=== PATIENT | female | born 1930 | race Caucasian/White ===

== ENCOUNTER 2017-07-28 13:48 | Observation (INO) | payer OTHER, MEDICARE ==
[~2017-07-28] VITALS: Ht 167.6 cm; Wt 79.4 kg
[~2017-07-28 13:48] MED LIST: ALENDRONATE SOD70 MG PO; ALLEGRA ALLERG180 MG PO; BACTRIM DS 8001 TAB PO; BACTRIM DS TAB1 EACH PO; BENADRYL ALLERG25 M1 PO; CARVEDILOL3.125 MG PO; CELEXA20 MG PO; CLOPIDOGREL75 MG PO; CYMBALTA 30 MG30 MG PO; FLUTICASON0.05 MG/Ac NASB; GABAPENTIN TAB600 MG PO; HYZAAR 25 MG-101 TAB PO; LEVOTHYROXINE0.05 MG PO; LIORESAL 10MG T10 MG PO; MASON NATURAL2000 IU PO; MELOXICAM15 MG PO; PERCOCET 325 MG1 TA2 PO; PHENAZOPYRIDIN100 M3 PO; PHENAZOPYRIDIN200 MG PO; VITAB121000 PO
--- NOTE | 2017-07-28 13:56 | ED AMS/SEIZURE/WEAK/DIZZY ---
History of Present Illness General Chief Complaint: Dizziness Stated Complaint: DIZZINESS Allergies Coded Allergies: ciprofloxacin (From CIPRO) (Mild, GI USPSET 07/02/15) Reconcile Medications Alendronate Sodium 70 MG TAB 1 TAB PO QW BONE (Reported) in the morning, at least 30 minutes before the first food, beverage, or medication of the day Carvedilol 3.125 MG TAB 1 TAB PO BID HEART (Reported) CHOLECALCIFEROL (VITAMIN D3) (Vitamin D) 2,000 IU SGL 1 CAP PO DAILY SUPPLEMENT (Reported) Citalopram Hydrobromide (Celexa) 20 MG TAB 1 TAB PO DAILY MENTAL HEALTH ( Reported) CLOPIDOGREL BISULFATE (Clopidogrel) 75 MG TAB 1 TAB PO DAILY BLOOD THINNER ( Reported) Cyanocobalamin (Vitamin B-12) 1,000 MCG TAB 1 TAB PO DAILY V (Reported) Duloxetine Hydrochloride (Cymbalta) 30 MG CAP 1 CAP PO DAILY MENTAL HEALTH ( Reported) Fluticasone Propionate 0.05 MG/Actuation SPR 2 SPRAY NASB DAILY ALLERGIES ( Reported) Gabapentin (Gabapentin Tab 600MG) 600 MG TAB 0.5 TAB PO AT BEDTIME UNKNOWN ( Reported) LOSARTAN/HYDROCHLOROTHIAZIDE (Hyzaar 100-25 Tablet) 1 TAB TAB 1 TAB PO DAILY HEART (Reported) OXYCODONE HCL/ACETAMINOPHEN (Percocet 5-325 MG Tablet) 325 MG/5 MG TAB 1 TAB PO Q6 PRN PAIN (Reported) PHENAZOPYRIDINE HCL (Phenazopyridine HCl) 200 MG TAB 1 TAB PO TID INFECTION ( Reported) after food Phenazopyridine HCl 100 MG TABLET 1 TAB PO TID AntiSpasmic Sulfamethoxazole/Trimethopri (Bactrim Ds 800 MG-160 MG) 1 TAB TAB 1 TAB PO BID INFECTION (Reported) Sulfamethoxazole/Trimethoprim (Bactrim Ds Tablet) 800 MG-160 MG TABLET 1 TAB PO BID UTI HPI: Patient is an 86-year-old female with a past medical history of hypertension, mood disorder, hypothyroidism, fibromyalgia, psoriasis, colon cancer status post resection approximately 6 years ago who resides at [facility] in which old records also indicate that approximately 6 months ago patient was seen and evaluated at [place] emergency room for concerns of dizziness versus room spinning sensation and vertigo where she received CAT scans carotid ultrasounds and patient was safely discharged with meclizine and an antibiotic due to urine infection Past History Medical History Cardiovascular: hypertension Hepatic: KIDNEY STONES Musculoskeletal: osteoporosis T12 FRACTURE Psychiatric: anxiety disorder major depression Endocrine: hyperthyroid History of MRSA: No History of VRE: No History of CDIFF: No Surgical History Surgical History: non-contributory Psychosocial History What is your primary language Stateless Progress Plan of Care: Orders Procedure Date/time Status URINALYSIS 07/28 1354 Active TROPONIN LEVEL 07/28 1354 Active PARTIAL THROMBOPLASTIN TIME 07/28 1354 Active PROTHROMBIN TIME 07/28 1354 Active COMPREHENSIVE METABOLIC PANEL 07/28 1354 Active CBC WITHOUT DIFFERENTIAL 07/[address] HEAD WO IV CONTRAST 07/28 1354 Active EKG 07/28 1351 Active Current Medications Sig/Cassie Start time Last Medication Dose Stop Time Status Admin Meclizine HCl 25 MG ONCE ONE 07/28 1400 UNVr (Antivert) 07/28 1401 Ondansetron HCl 4 MG ONCE ONE 07/28 1400 UNVr (Zofran) 07/28 1401 Departure Departure Condition: Stable Referrals: Rhonda Edmond MD (PCP/Family) Departure Forms: Customer Survey General Discharge Information
--- NOTE | 2017-07-28 13:59 | ED AMS/SEIZURE/WEAK/DIZZY ---
See Addendum History of Present Illness General Chief Complaint: Dizziness Stated Complaint: DIZZINESS Source: patient, old records, EMS Exam Limitations: no limitations Vital Signs & Intake/Output Vital Signs & Intake/Output Vital Signs Date Time Temp Pulse Resp B/P B/P Pulse O2 O2 Flow FiO2 Mean Ox Delivery Rate 07/28 1619 98.0 76 18 158/76 96 Room Air 07/28 1422 98 Room Air 07/28 1415 98.1 70 18 155/86 98 Room Air Allergies Coded Allergies: ciprofloxacin (From CIPRO) (Mild, GI USPSET 07/02/15) Reconcile Medications Acetaminophen 500 MG TABLET 2 TAB PO TID PAIN (Reported) Alendronate Sodium (Fosamax) 70 MG TABLET 1 TAB PO QMON OSTEOPOROSIS ( Reported) in the morning, at least 30 minutes before the first food, beverage, or medication of the day Betamethasone Dipropionate 0.05 % CREAM..G. 1 PALOMA TOP DAILY BLE (Reported) apply to affected area(s) Budesonide/Formoterol Fumarate (Symbicort 80-4.5 Mcg Inhaler) 80 MCG-4.5 MCG/ ACTUATION HFA.AER.AD 2 PUF INH BID RESP. (Reported) Cholecalciferol (Vitamin D3) (Vitamin D) 2,000 UNIT CAPSULE 1 CAP PO DAILY SUPPLEMENT (Reported) Citalopram Hydrobromide (Citalopram HBr) 40 MG TABLET 1 TAB PO DAILY MENTAL HEALTH (Reported) Cyanocobalamin (Vitamin B-12) 1,000 MCG TABLET 1 TAB PO DAILY SUPPLEMENT ( Reported) Diazepam 2 MG TABLET 1 TAB PO BID UNKNOWN (Reported) Duloxetine HCl 30 MG CAPSULE.DR 1 CAP PO DAILY UNKNOWN (Reported) Gabapentin 300 MG CAPSULE 1 CAP PO TID UNKNOWN (Reported) Hyoscyamine Sulfate 0.125 MG TABLET 1 TAB PO DAILY UKNOWN (Reported) Librax (Librax Capsule) 5 MG-2.5 MG CAPSULE 1 CAP PO TID PRN SPASMS (Reported ) Loratadine (Loradamed) 10 MG TABLET 1 TAB PO DAILY PRN ALLERGIES (Reported) Lorazepam 1 MG TABLET 1 TAB PO Q12H PRN ANXIETY (Reported) Losartan/Hydrochlorothiazide (Losartan-Hctz 100-25 MG Tab) 100 MG-25 MG TABLET 1 TAB PO DAILY BP (Reported) Mirabegron (Myrbetriq) 50 MG TAB.ER.24H 1 TAB PO DAILY BLADDER (Reported) Pantoprazole Sodium 40 MG TABLET.DR 1 TAB PO DAILY GI (Reported) Phenazopyridine HCl 100 MG TABLET 1 TAB PO TID PRN PAIN (Reported) Trimethoprim 100 MG TABLET 1 TAB PO DAILY ABX (Reported) Triage Nurses Notes Reviewed? yes Onset: Abrupt Duration: day(s): (1), changing over time, continues in ED, getting worse Timing: remote history Injury Environment: home Severity: moderate, severe Severity Numbers: 7 No Modifying Factors: none LMP (ages 10-50): unknown : No Patient currently breastfeeds: No HPI: 86-year-old female past medical history of hypertension, hyperthyroidism, fibromyalgia, anxiety brought in by a sam from assisted living for evaluation of dizziness, nausea and weakness. Patient reports that when she woke up today she felt very dizzy with any movement of her head or even opening her eyes. This does improve somewhat when she lays flat and keeps her eyes closed. She reports associated nausea. No recent head trauma or falls. No vomiting. No chest pain or shortness of breath. She has had similar symptoms in the past been diagnosed with vertigo. She also has a history of recurrent UTIs. Currently denies any urinary symptoms no fevers no abdominal pain. She does report some left-sided lower back pain. She is not taking any medicine for this. She states that she has been unable to walk due to extreme dizziness. (Roddy Chaney) Past History Medical History Any Pertinent Medical History? see below for history Cardiovascular: hypertension Hepatic: KIDNEY STONES Musculoskeletal: osteoporosis T12 FRACTURE Psychiatric: anxiety disorder major depression Endocrine: hyperthyroid History of MRSA: No History of VRE: No History of CDIFF: No Surgical History Surgical History: non-contributory Psychosocial History What is your primary language Ivorian Family History Hx Contributory? No (Roddy Chaney) Review of Systems Review of Systems Constitutional: Reports: weakness. EENTM: Reports: no symptoms. Respiratory: Reports: no symptoms. Cardiovascular: Reports: no symptoms. GI: Reports: see HPI, nausea. Genitourinary: Reports: no symptoms. Musculoskeletal: Reports: no symptoms. Skin: Reports: no symptoms. Neurological/Psychological: Reports: see HPI (DIZZY), weakness. Hematologic/Endocrine: Reports: no symptoms. Immunologic/Allergic: Reports: no symptoms. All Other Systems: Reviewed and Negative (Ruperto CHAVARRIA,Roddy) Physical Exam Physical Exam General Appearance: well developed/nourished, no apparent distress, alert, awake Head: atraumatic, normal appearance Eyes: Bilateral: normal appearance, PERRL, EOMI. Ears, Nose, Throat: normal pharynx, normal ENT inspection, hearing grossly normal Neck: normal inspection, supple, full range of motion, NO JVD OR CAROTID BRUITS Respiratory: normal breath sounds, chest non-tender, no respiratory distress, lungs clear Cardiovascular: regular rate/rhythm, normal peripheral pulses Peripheral Pulses: 2+ radial (R), 2+ radial (L) Gastrointestinal: soft, non-tender Back: normal inspection, normal range of motion, no vertebral tenderness Extremities: normal range of motion Neurologic/Psych: no motor/sensory deficits, awake, alert, oriented x 3, normal gait Skin: intact, normal color, warm/dry Lymphatic: no anterior cervical booker Core Measures ACS in differential dx? No CVA/TIA Diagnosis No Sepsis Present: No Sepsis Focused Exam Completed? No (Ruperto CHAVARRIA,Roddy) Progress Differential Diagnosis: arrythmia, anemia, benign positional vertigo, CVA/stroke , dehydration, electrolyte imbalance, intracranial Hem., intracranial mass/tumor , Meniere's disease, postural hypotension, presyncope, UTI/pyelo Plan of Care: Orders Procedure Date/time Status Heart Healthy Diet 07/29 B Active CBC WITHOUT DIFFERENTIAL 07/29 06 Active BASIC ELECTROLYTES PLUS BUN&CR 07/29 0600 Active Regular Diet 07/28 D Complete PT Evaluate & Treat 07/28 1748 Active Pathway - chart 07/28 1748 Active House Staff 07/28 1748 Active Patient Data 07/28 1748 Active Code Status 07/[address] in observation 07/28 1744 Active ED Holding Orders 07/28 1744 Active Vital Signs 07/28 1744 Active Code Status 07/28 1744 Complete Patient Data 07/[address] ABD & PELVIS W/O IV CONTRAS 07/28 1710 Active Add-on Test (ER Only) 07/28 1439 Active CULTURE,URINE 07/28 1409 Active MISTAKE 07/28 1406 Active Add-on Test (ER Only) 07/28 1404 Active Add-on Test (ER Only) 07/28 1402 Active URINALYSIS 07/28 1354 Complete TROPONIN LEVEL 07/28 1354 Complete PARTIAL THROMBOPLASTIN TIME 07/28 135 Complete PROTHROMBIN TIME 07/28 1354 Complete COMPREHENSIVE METABOLIC PANEL 07/28 135 Complete CBC WITHOUT DIFFERENTIAL 07/28 135 Complete EKG 07/28 1351 Active VTE Mechanical Prophylaxis 07/28 UNK Active Vital Signs 07/28 UNK Active Intake & Output 07/28 UNK Active Laboratory Tests 07/28/17 1409: Anion Gap 12, Estimated GFR > 60, BUN/Creatinine Ratio 16.3, Glucose 85, Calcium 9.7, Total Bilirubin 0.7, AST 17, ALT 17, Alkaline Phosphatase 41, Troponin I < 0.01, Total Protein 7.1, Albumin 4.2, Globulin 2.9, Albumin/Globulin Ratio 1.4, PT 11.6, INR 1.06, APTT 27, CBC w Diff NO MAN DIFF REQ, RBC 4.26, MCV 87.9, MCH 29.2, MCHC 33.3, RDW 14.2, MPV 8.0, Gran % 71.9, Lymphocytes % 18.0 L, Monocytes % 8.0, Eosinophils % 1.7, Basophils % 0.4, Absolute Granulocytes 5.3, Absolute Lymphocytes 1.3, Absolute Monocytes 0.6, Absolute Eosinophils 0.1, Absolute Basophils 0, Urinalysis LIGHT H, Urine Color YEL, Urine Clarity HAZY H, Urine pH 7.5, Ur Specific Edmond 1.015, Urine Protein NEG, Urine Ketones NEG , Urine Nitrite NEG, Urine Bilirubin NEG, Urine Urobilinogen 0.2, Ur Leukocyte Esterase SMALL H, Ur Microscopic SEDIMENT EXAMINED, Urine RBC 1-3, Urine WBC 15 -25 H, Ur Epithelial Cells FEW, Urine Bacteria MANY H, Urine Mucus FEW, Urine Hemoglobin NEG, Urine Glucose NEG Microbiology 07/28 1409 URINE ROUT: Urine Culture - RECD Patient seen and evaluated. She is reporting dizziness that is worse with movement and improves at rest. Associated nausea. Patient is neurologically intact her vital signs are stable. We'll check basic labs EKG CT scan of the brain and urinalysis. Patient medicated with Zofran and meclizine. CT OF the brain is within normal limits. All blood work is within normal limits. Urine is showing signs of infection culture sent. Patient was questioned about urinary signs and symptoms she does report frequency urgency and dysuria. Patient is still reports severe nausea even after Zofran and meclizine. Reglan ordered. Patient still does not feel like she can walk due to her symptoms. She may require admission. Patient is still reporting significant dizziness despite medications. 0.5MG of IV Ativan ordered. She was also given a dose of IV ceftriaxone for UTI. She was unable to ambulate in the emergency department despite multiple IV medications. She will require admission for intractable vertigo and UTI. She' ll require neurology, IV antibiotics, IV fluids, serial labs, echocardiogram, carotid ultrasound, MRI, physical therapy, case management. Case discussed with Dr. Vazquez he agrees. Diagnostic Imaging: Viewed by Me: Radiology Read, CT Scan. Discussed w/RAD: Radiology Read, CT Scan. Radiology Impression: PATIENT: VIJAY ROWE PRESENT AGE : 86 PATIENT ACCOUNT NO: [id number] : 30 LOCATION: [facility] ORDERING PHYSICIAN: Roddy CHAVARRIA SERVICE DATE: 07/28/17 EXAM TYPE: CAT - CT HEAD WO IV CONTRAST EXAMINATION: CT HEAD WITHOUT CONTRAST CLINICAL INFORMATION: Dizziness and headache. COMPARISON: CT brain 11/15/2016 TECHNIQUE: Contiguous axial imaging was performed from the skull base to vertex without intravenous administration of contrast. DLP: 776 mGy-cm FINDINGS: There is no evidence of acute intracranial hemorrhage or territorial infarction. No abnormal mass effect or midline shift is seen. Paige to white matter differentiation is well preserved. No extra-axial fluid collections are identified. The lateral ventricles are enlarged and so other cortical sulci suggestive mild central atrophy. There is diffuse periventricular hypodensity suggestive of chronic small vessel ischemic changes. The osseous structures and soft tissues are normal. The mastoid air cells and visualized portions of the paranasal sinuses are well aerated. IMPRESSION: No acute intracranial process seen. DICTATED BY: Keke PEREZ,Brent DATE/TIME DICTATED:07/28/171453 FPGA DESIGN ENGINEER:MODE DATE/TIME TRANSCRIBED:07/28/171453 CONFIDENTIAL, DO NOT COPY WITHOUT APPROPRIATE AUTHORIZATION. Initial ED EKG: normal sinus rhythm, PACs, PROBABLE POSTERIOR INFARCT (Roddy Chaney) Departure Departure Disposition: STILL A PATIENT Condition: Stable Clinical Impression Primary Impression: Vertigo Secondary Impressions: UTI (urinary tract infection) Qualifiers: Urinary tract infection type: acute cystitis Hematuria presence: without hematuria Qualified Code: N30.00 - Acute cystitis without hematuria Referrals: Mayito PEREZ,Rhonda (PCP/Family) Departure Forms: Customer Survey General Discharge Information (Roddy Chaney) Observation Note Spoke With: Deep PEREZ,Ilene Physician Advisor Notified: HOWARD VAZQUEZ DO Place Patient In: Non-ED OBS Care Area Rationale for Observation: My rational for observation is as follows [patient is unable to ambulate. She has intractable vertigo. She will need IV fluids and IV medications including benzodiazepines. She is at risk to go home and therefore needs PT evaluation]. (Howard Vazquez DO)
[2017-07-28 14:31] LABS: ABSOLUTE BASOPHIL COUNT 0 /CUMM (0.0-0.2); ABSOLUTE EOSINOPHIL COUNT 0.1 /CUMM (0.0-0.7); ABSOLUTE GRANULOCYTE CT 5.3 /CUMM (1.4-6.5); ABSOLUTE LYMPH COUNT 1.3 /CUMM (1.2-3.4); ABSOLUTE MONOCYTE COUNT 0.6 /CUMM (0.10-0.60); BASOPHIL % 0.4 % (0.0-2.0); EOSINOPHIL % 1.7 % (0-5); GRANULOCYTE % 71.9 % (42.2-75.2); HEMATOCRIT 37.4 % (37-47); MEAN CORPUSCULAR HGB 29.2 PG (27.0-31.0); MEAN CORPUSCULAR HGB CONC 33.3 G/DL (33.0-37.0); MEAN CORPUSCULAR VOLUME 87.9 FL (81.0-99.0); PLATELET COUNT 226 /CUMM (130-400); RBC DISTRIBUTION WIDTH 14.2 % (11.5-14.5); RED BLOOD CELL CT 4.26 /CUMM (4.20-5.40); WHITE BLOOD CELL COUNT 7.4 /CUMM (4.8-10.8)
[2017-07-28 14:34] LABS: PT 11.6 SEC (9.4-12.5); PTT 27 SEC (25-37)
--- NOTE | 2017-07-28 15:03 | CT SCAN REPORT ---
EXAMINATION: CT HEAD WITHOUT CONTRAST CLINICAL INFORMATION: Dizziness and headache. COMPARISON: CT brain 11/15/2016 TECHNIQUE: Contiguous axial imaging was performed from the skull base to vertex without intravenous administration of contrast. DLP: 776 mGy-cm FINDINGS: There is no evidence of acute intracranial hemorrhage or territorial infarction. No abnormal mass effect or midline shift is seen. Paige to white matter differentiation is well preserved. No extra-axial fluid collections are identified. The lateral ventricles are enlarged and so other cortical sulci suggestive mild central atrophy. There is diffuse periventricular hypodensity suggestive of chronic small vessel ischemic changes. The osseous structures and soft tissues are normal. The mastoid air cells and visualized portions of the paranasal sinuses are well aerated. IMPRESSION: No acute intracranial process seen.
[2017-07-28] MEDS ORDERED: ACETAMINOPHEN500 M4 PO (16:02)
[2017-07-28] MEDS ORDERED: FOSAMAX70 M1 PO (16:02)
[2017-07-28] MEDS ORDERED: BETAMETHASONE D15 G4 TOP (16:02)
[2017-07-28] MEDS ORDERED: LIBRAX CAPSULE1 EACH PO (16:03)
[2017-07-28] MEDS ORDERED: SYMBICORT 80-10.2 GM INH (16:03)
[2017-07-28] MEDS ORDERED: VITAMIN D2000 UNIT PO (16:03)
[2017-07-28] MEDS ORDERED: VITAMIN B-121000 MC3 PO (16:04)
[2017-07-28] MEDS ORDERED: CITALOPRAM HBR40 MG PO (16:04)
[2017-07-28] MEDS ORDERED: DULOXETINE HCL30 MG PO (16:05)
[2017-07-28] MEDS ORDERED: DIAZEPAM2 M1 PO (16:05)
[2017-07-28] MEDS ORDERED: GABAPENTIN300 M2 PO (16:06)
[2017-07-28] MEDS ORDERED: LOSARTAN-HCTZ1 EAC2 PO (16:06)
[2017-07-28] MEDS ORDERED: HYOSCYAMINE0.125 M4 PO (16:07)
[2017-07-28] MEDS ORDERED: LORADAMED10 MG PO (16:07)
[2017-07-28] MEDS ORDERED: LORAZEPAM1 M1 PO (16:08)
[2017-07-28] MEDS ORDERED: MYRBETRIQ50 M1 PO (16:08)
[2017-07-28] MEDS ORDERED: PANTOPRAZOLE SO40 M1 PO (16:09)
[2017-07-28] MEDS ORDERED: PHENAZOPYRIDIN100 M3 PO (16:09)
[2017-07-28] MEDS ORDERED: TRIMETHOPRIM100 M1 PO (16:10)
--- NOTE | 2017-07-28 17:13 | RADIOLOGY REPORT ---
EXAMINATION: XR PORTABLE CHEST CLINICAL INFORMATION: Dizziness. Presumptive diagnosis of pneumonia or CHF. COMPARISON: Chest x-ray dated 05/25/2015. TECHNIQUE: Portable AP semierect view of the chest was obtained. FINDINGS: EKG leads overlie the chest. There is elevation of the right hemidiaphragm, unchanged from previous exam with associated right basilar subsegmental atelectatic changes. Remainder of the lungs is clear. No effusion or pneumothorax is noted. Bony structures are unremarkable. IMPRESSION: 1. Chronic elevation of right hemidiaphragm with associated right basilar subsegmental atelectasis. 2. No new superimposed pneumonia or CHF.
--- NOTE | 2017-07-28 17:59 | History & Physical ---
See Addendum Raymond Flores 07/28/17 7019: General Information and HPI History of Present Illness: Ms. Nieto is a 86 yo f with a PMH of colon cancer s/p resection, multinodular goiter, osteoporosis, hydrochondriasis, nephrolithiasis, fibromyalgias, hypothyroidism, HTN, depression, anxiety who presented to the ED with dizziness since this morning. Patient reports that she lives in an assisted living facility with her . This morning she was laying in bed and tried to get up at which point the room started spinning around her which caused her to fall backwards on the bed. Patient reports her dizziness is exacerbated by standing or sitting and alleviated by laying. She also reports increased urination with incontinence and burning sensation accompanied by left flank pain for the past couple weeks. She has also been constipated recently. Today after her bowel movement she had to crawl back to bed after dizziness worsened. She receives home physical therapy. She denies nausea, vomiting, fever, chills, tinnitus, ear fullness, ear pain, ARMANDO, visual changes, SOB, palpitations Allergies/Medications Allergies: Coded Allergies: ciprofloxacin (From CIPRO) (Mild, GI USPSET 07/02/15) Home Med list Acetaminophen 500 MG TABLET 2 TAB PO TID PAIN (Reported) Alendronate Sodium (Fosamax) 70 MG TABLET 1 TAB PO QMON OSTEOPOROSIS ( Reported) in the morning, at least 30 minutes before the first food, beverage, or medication of the day Betamethasone Dipropionate 0.05 % CREAM..G. 1 PALOMA TOP DAILY BLE (Reported) apply to affected area(s) Budesonide/Formoterol Fumarate (Symbicort 80-4.5 Mcg Inhaler) 80 MCG-4.5 MCG/ ACTUATION HFA.AER.AD 2 PUF INH BID RESP. (Reported) Cholecalciferol (Vitamin D3) (Vitamin D) 2,000 UNIT CAPSULE 1 CAP PO DAILY SUPPLEMENT (Reported) Citalopram Hydrobromide (Citalopram HBr) 40 MG TABLET 1 TAB PO DAILY MENTAL HEALTH (Reported) Cyanocobalamin (Vitamin B-12) 1,000 MCG TABLET 1 TAB PO DAILY SUPPLEMENT ( Reported) Diazepam 2 MG TABLET 1 TAB PO BID UNKNOWN (Reported) Duloxetine HCl 30 MG CAPSULE.DR 1 CAP PO DAILY UNKNOWN (Reported) Gabapentin 300 MG CAPSULE 1 CAP PO TID UNKNOWN (Reported) Hyoscyamine Sulfate 0.125 MG TABLET 1 TAB PO DAILY [place] (Reported) Librax (Librax Capsule) 5 MG-2.5 MG CAPSULE 1 CAP PO TID PRN SPASMS (Reported ) Loratadine (Loradamed) 10 MG TABLET 1 TAB PO DAILY PRN ALLERGIES (Reported) Lorazepam 1 MG TABLET 1 TAB PO Q12H PRN ANXIETY (Reported) Losartan/Hydrochlorothiazide (Losartan-Hctz 100-25 MG Tab) 100 MG-25 MG TABLET 1 TAB PO DAILY BP (Reported) Mirabegron (Myrbetriq) 50 MG TAB.ER.24H 1 TAB PO DAILY BLADDER (Reported) Pantoprazole Sodium 40 MG TABLET.DR 1 TAB PO DAILY GI (Reported) Phenazopyridine HCl 100 MG TABLET 1 TAB PO TID PRN PAIN (Reported) Trimethoprim 100 MG TABLET 1 TAB PO DAILY ABX (Reported) Past History Travel History Traveled to [place] past 21 day No Medical History Cardiovascular: hypertension Hepatic: KIDNEY STONES Musculoskeletal: osteoporosis T12 FRACTURE Psychiatric: anxiety disorder major depression Endocrine: hyperthyroid History of MRSA: No History of VRE: No History of CDIFF: No Surgical History Surgical History: non-contributory Past Family/Social History Psychosocial History ETOH Use: denies use Illicit Drug Use: denies illicit drug use Functional Ability ADLs Independent: dressing, eating, toileting, bathing. Ambulation: cane IADLs Independent: shopping, housework, finances, food prep, telephone, transportation , medication admin. Review of Systems Review of Systems Constitutional: Reports: see HPI. Exam & Diagnostic Data Last 24 Hrs of Vital Signs/I&O Vital Signs Date Time Temp Pulse Resp B/P B/P Pulse O2 O2 Flow FiO2 Mean Ox Delivery Rate 07/28 1619 98.0 76 18 158/76 96 Room Air 07/28 1422 98 Room Air 07/28 1415 98.1 70 18 155/86 98 Room Air Intake & Output 07/28 1600 07/28 0800 07/28 0000 Intake Total 1000 Output Total 200 Balance 800 Intake, IV 1000 Output, Urine 200 Patient 175 lb Weight Physical Exam General Appearance Alert, Oriented X3, Cooperative, No Acute Distress Cardiovascular Regular Rate, Normal S1, Normal S2, No Murmurs Lungs Clear to Auscultation, Normal Air Movement Abdomen Normal Bowel Sounds, Soft, No Tenderness Last 24 Hrs of Labs/Chris: Laboratory Tests 07/28/17 1409: Anion Gap 12, Estimated GFR > 60, BUN/Creatinine Ratio 16.3, Glucose 85, Calcium 9.7, Total Bilirubin 0.7, AST 17, ALT 17, Alkaline Phosphatase 41, Troponin I < 0.01, Total Protein 7.1, Albumin 4.2, Globulin 2.9, Albumin/Globulin Ratio 1.4, PT 11.6, INR 1.06, APTT 27, CBC w Diff NO MAN DIFF REQ, RBC 4.26, MCV 87.9, MCH 29.2, MCHC 33.3, RDW 14.2, MPV 8.0, Gran % 71.9, Lymphocytes % 18.0 L, Monocytes % 8.0, Eosinophils % 1.7, Basophils % 0.4, Absolute Granulocytes 5.3, Absolute Lymphocytes 1.3, Absolute Monocytes 0.6, Absolute Eosinophils 0.1, Absolute Basophils 0, Urinalysis LIGHT H, Urine Color YEL, Urine Clarity HAZY H, Urine pH 7.5, Ur Specific [place] 1.015, Urine Protein NEG, Urine Ketones NEG , Urine Nitrite NEG, Urine Bilirubin NEG, Urine Urobilinogen 0.2, Ur Leukocyte Esterase SMALL H, Ur Microscopic SEDIMENT EXAMINED, Urine RBC 1-3, Urine WBC 15 -25 H, Ur Epithelial Cells FEW, Urine Bacteria MANY H, Urine Mucus FEW, Urine Hemoglobin NEG, Urine Glucose NEG Microbiology 07/28 1409 URINE ROUT: Urine Culture - RECD Diagnostic Data CXR Results IMPRESSION: 1. Chronic elevation of right hemidiaphragm with associated right basilar subsegmental atelectasis. 2. No new superimposed pneumonia or CHF. Other Results CT HEAD WO IV CONTRAST FINDINGS: There is no evidence of acute intracranial hemorrhage or territorial infarction. No abnormal mass effect or midline shift is seen. Paige to white matter differentiation is well preserved. No extra-axial fluid collections are identified. The lateral ventricles are enlarged and so other cortical sulci suggestive mild central atrophy. There is diffuse periventricular hypodensity suggestive of chronic small vessel ischemic changes. The osseous structures and soft tissues are normal. The mastoid air cells and visualized portions of the paranasal sinuses are well aerated. IMPRESSION: No acute intracranial process seen. Assessment/Plan Assessment: Ms. Nieto is a 86 yo f with a PMH of colon cancer s/p resection, multinodular goiter, osteoporosis, hydrochondriasis, nephrolithiasis, fibromyalgias, hypothyroidism, HTN, depression, anxiety who presented to the ED with dizziness since this morning. Problem list: Vertigo may be secondary to BPPV vs vestibular neuritis vs posterior circulation CVA Symtpomatic UTI Plan: Admit to general med for further evaluation and management IV ceftriaxone for UTI Await final cultures Continue home medications Orthostats Neuro consult MRI brain to r/o posterior CVA PT evaluation Meclizine and Compazine PRN for dizziness Consider other anti-emetics for dizziness Diet: Heart healthy DVT prophylaxis: sc Heparin Code: Full As Ranked By This Provider Problem List: 1. Vertigo 2. Dizziness, nonspecific 3. UTI (urinary tract infection) Qualifiers Urinary tract infection type: acute cystitis Hematuria presence: without hematuria Qualified Code: N30.00 - Acute cystitis without hematuria Core Measures/Misc (01/13) Acute Coronary Syndrome ACS Diagnosis: No Congestive Heart Failure Congestive Heart Failure Diagnosis No Cerebrovascular Accident CVA/TIA Diagnosis: No VTE (View Protocol) VTE Risk Factors Age>40 No Mechanical VTE Prophylaxis d/t N/A MechProphylax Ordered No VTE Pharm Prophylaxis d/t NA PharmProphylax ordered Sepsis (View protocol) Sepsis Present: No Bouchra Whitmore MD 07/28/171927: Resident Review Statement Resident Statement: examined this patient, discussed with general internist, agreed with general internist, discussed with family, reviewed EMR data (avail), discussed with nursing , discussed with case mgmt, reviewed images, amended to note Other Findings: Patient is a 86 YO F with PMH significant for colon cancer (resection in [place] ), anxiety, fibromyalgia, hypertension, hypothyroidism, major depression, hypochondriasis, recurrent urinary infections, osteoporosis, goiter presented to [facility] after experiencing sudden onset severe vertigo started today morning. Patient reports spinning sensation of room around her, without any nausea/ vomiting. She did have sudden falling back into the bed after trying to wake up (drop attack). She denies any fullness in her ear, ear pain. No recent respiratory infection/trauma, fevers. She did have increased frequency of urination with burning with and left flank pain. Vitals at admission T-max of 98.1, heart rate 70, blood pressure 155/86 mmHg, on room air. Urinalysis did show hazy urine with small leukocyte esterase, white count 15-25, many bacteria. labs are unremarkable including white count, chem panel. Imaging -head CT ruled out acute ischemic posterior stroke. Chest x-ray did show chronic elevation right hemidiaphragm with associated right bibasilar subsegmental atelectasis. CT abdomen and pelvis did show bilateral nonobstructing renal calculi with fluid attenuation focus along the right side of the mediastinum seen in prior study as well. Assessment Patient is 86-year-old female with history of psoriasis, nephrolithiasis with recurrent UTIs, presented with sudden onset severe vertigo associated with drop attacks. She does not have any recent respiratory infections are auditory symptoms. She does have gait instability requiring PT. Also notable for increased frequency and increased urgency. UA is positive. Imaging did show bilateral nonobstructing renal calculi and ruled out acute posterior ischemic stroke. Comfirm medications by calling [facility] guidance in the morning Plan Admit to general medicine floor Acute severe vertigo Possible etiologies are vestibular neuritis or stroke or BPPV. * MRI and neuro consult -rule out posterior stroke * Antiemetics promethazine IV every 6, meclizine 25 mg 3 times daily * PT evaluation for [place] E to rule out BPPV Lower urinary tract infection She did have a recurrent episodes of cystitis possibly secondary to stones. He is on lactic dose of trimethoprim all however her previous cultures are resistant to trimethoprim. She grew E. coli in the past sensitive to cephalosporins. * Follow-up urine culture * Start IV ceftriaxone continue home medications for chronic conditions including anxiety disorder, fibromyalgia, hypertension, hypothyroidism, major depression Confirm and continue home medications for rest of the conditions including anxiety, fibromyalgia, hypertension, major depression, osteoporosis. DVT prophylaxis SC heparin Code status Full code Genaro Keys MD 07/28/17 2140: Attending Review Statement Attending Statement Attending Statement: examined this patient, discuss w/resident/PA/ON LINE CSR, agreed w/resident/PA/ON LINE CSR, reviewed EMR data (avail), discussed with nursing Attending Assessment/Plan: Ms. Nieto is an 86 y.o female who lives in assisted living with has a history of fibromyalgias, hypertension depression anxiety, colon cancer status post remote resection, multinodular goiter status post resection, presents with complaints of acute onset of dizziness that started this morning. No specific aggravating or relieving factor. Not associated with headache, nausea. Patient has also been having symptoms of burning sensation associated with left flank pain for the past 1-2 weeks On examination - BP - 155/86, HR of 70, Tmax of 98.1, saturating well on room air General Appearance Alert, Oriented X3, cooperative, no Acute Distress HEENT Within normal limits on limited exam as patient is unable to even sit up in bed Cardiovascular Regular Rate, Normal S1, Normal S2, No Murmurs Lungs Clear to Auscultation, Normal Air Movement Abdomen Normal Bowel Sounds, Soft, No Tenderness Neuro: No focal neurological deficits. Cranial nerve exam 2-12 remains intact.Sensory exam within normal limits Unable to examine nystagmus as patient is very symptomatic when made to sit up Assessment 1. Acute onset dizziness - DD - BPPV/ Vestibular neuronitis/ posterior circulation stroke or vertebrobasilar ischemia (less likely) 2. Symptomatic urinary tract infection - Patient has recurrent UTI and is on bactrim suppressive therapy 3. Major depression, Fibromyalgia, HTN Plan 1. Initiate on Meclizine and antiemetics such as prochlorperazine or reglan for symptomatic control 2. MRI brain to assess posterior circulation territory ischemia and obtain Neurology consult 3. Initiate on IV Ceftriaxone until we get final cultures - some previous cultures have been resistant to bactrim. 4. Physical therapy evaluation
--- NOTE | 2017-07-28 18:12 | CT SCAN REPORT ---
EXAMINATION: CT ABDOMEN AND PELVIS WITHOUT CONTRAST CLINICAL INFORMATION: Left flank pain. Kidney stones. COMPARISON: 03/13/2016 TECHNIQUE: Multidetector volumetric imaging was performed from the superior aspect of the liver through the pubic symphysis. Sagittal and coronal reformatted images were obtained on the technologist's workstation. FINDINGS: LUNG BASES: Linear opacities in the right middle lobe and right lower lobe, probably atelectasis or scarring. There is a fluid attenuation focus along the right side of the mediastinum, which is seen in the prior study as well. LIVER, GALLBLADDER, AND BILIARY TREE: Multiple low-attenuation lesions in the liver. The larger of these foci have measurements compatible with a cyst. The smaller foci are too small to characterize, but appear grossly similar in size as compared to the prior imaging. There are surgical clips noted adjacent to the liver. The gallbladder is unremarkable with no evidence of radiopaque gallstones, gallbladder wall thickening, or obvious pericholecystic inflammatory changes. PANCREAS: Mild atrophic. No acute inflammatory changes. SPLEEN: Unremarkable. ADRENAL GLANDS: Unremarkable. KIDNEYS AND URETERS: Three nonobstructing calculi in the right kidney; upper pole 5 mm, lower pole 6 cm, lower pole 6 cm. A 2 mm nonobstructing calculus in the interpolar left kidney. There is a lower pole cyst present. Bilateral extrarenal pelvis. No ureteral calculi seen. No hydronephrosis. BLADDER: Unremarkable. GASTROINTESTINAL TRACT: Postoperative changes in the region of the ileocecal valve. No evidence of colonic wall thickening or pericolonic inflammatory changes. Normal caliber small bowel loops. Stomach is nondistended. No free fluid or free air. ABDOMINAL WALL: Evidence of prior anterior abdominal wall hernia surgery. LYMPH NODES: No pathologically enlarged lymph nodes are seen in the abdomen or pelvis. VASCULAR: Moderate atherosclerotic calcification of the aorta and iliac vessels. PELVIC VISCERA: Within normal limits. OSSEOUS STRUCTURES: Evidence of prior vertebroplasty in the L1, T12 vertebral bodies. Multilevel degenerative changes in the spine. IMPRESSION: 1. Bilateral nonobstructing renal calculi. No hydronephrosis. No ureteral calculi seen. Left renal cyst. 2. Multiple liver cysts. 3. Postsurgical changes from partial right colectomy. No acute findings seen. 4. Fluid attenuation focus along the right side of the mediastinum, seen in the prior study as well.
[2017-07-28 20:00] VITALS: BP 150/70
[2017-07-29 06:47] VITALS: BP 143/78
--- NOTE | 2017-07-29 07:16 | PN- Housestaff ---
Raymond Flores 07/29/17 0716: Subjective Follow-up For: Vertigo may be secondary to BPPV vs vestibular neuritis vs posterior circulation CVA Symtpomatic UTI Subjective: Patient reports persistent dizziness with sitting, standing. Review of Systems Constitutional: Reports: see HPI. Objective Last 24 Hrs of Vital Signs/I&O Vital Signs Date Time Temp Pulse Resp B/P B/P Pulse O2 O2 Flow FiO2 Mean Ox Delivery Rate 07/29 0647 98.2 77 20 143/78 94 Room Air 07/28 2000 97.7 71 18 150/70 95 Room Air 07/28 1934 98.3 72 17 142/78 95 Room Air 07/28 1619 98.0 76 18 158/76 96 Room Air 07/28 1422 98 Room Air 07/28 1415 98.1 70 18 155/86 98 Room Air Intake & Output 07/29 1600 07/29 0800 07/29 0000 Intake Total 240 Output Total 600 600 Balance -360 -600 Intake, Oral 240 Output, Urine 600 600 Patient 175 lb Weight Physical Exam General Appearance: Alert, Oriented X3, Cooperative, No Acute Distress HEENT: No nystagmus Cardiovascular: Regular Rate, Normal S1, Normal S2, No Murmurs Lungs: Clear to Auscultation, Normal Air Movement Abdomen: Normal Bowel Sounds, Soft, No Tenderness Current Medications: Current Medications Sig/Cassie Start time Last Medication Dose Route Stop Time Status Admin Alendronate Sodium 70 MG QMON 07/29 0700 AC 07/29 PO 0630 Ceftriaxone Sodium 1,000 MG DAILY@1700 07/29 1700 AC IV Ceftriaxone Sodium 0 .STK-MED ONE 07/28 1711 DC .ROUTE Ceftriaxone Sodium 1,000 MG ONCE ONE 07/28 1700 DC 07/28 IV 07/28 1701 1717 Cholecalciferol 1,000 IU DAILY 07/29 003 AC 07/29 PO 0122 Citalopram 40 MG DAILY 07/29 29 AC 07/29 Hydrobromide PO 0122 Cyanocobalamin 1,000 MCG DAILY 07/28 2000 AC 07/28 PO 2221 Duloxetine HCl 30 MG DAILY 07/29 0030 AC 07/29 PO 0122 Fluocinonide 1 PALOMA DAILY 07/29 1000 AC EXT Gabapentin 300 MG TID 07/29 003 AC 07/29 PO 0122 Lorazepam 1 MG Q12H PRN 07/28 2145 AC PO Lorazepam 0 .STK-MED ONE 07/28 1736 DC .ROUTE Lorazepam 0.5 MG ONCE ONE 07/28 1715 DC 07/28 IV 07/28 1716 1742 Meclizine HCl 25 MG TID 07/29 0030 AC 07/29 PO 0123 Meclizine HCl 0 .STK-MED ONE 07/28 1418 DC PO Meclizine HCl 25 MG ONCE ONE 07/28 1400 DC 07/28 PO 07/28 1401 1413 Melatonin 5 MG ONCE ONE 07/28 2330 DC 07/29 PO 07/28 2331 0123 Metoclopramide HCl 0 .STK-MED ONE 07/28 1533 DC .ROUTE Metoclopramide HCl 10 MG ONCE ONE 07/28 1530 DC 07/28 IV 07/28 1531 1543 Mirabegron 50 MG DAILY 07/28 2014 AC 07/28 PO 2220 Omeprazole 40 MG DAILY AC 07/29 0700 AC 07/29 PO 0630 Ondansetron HCl 0 .STK-MED ONE 07/28 1418 DC PO Ondansetron HCl 4 MG ONCE ONE 07/28 1400 DC 07/28 PO 07/28 1401 1413 Phenazopyridine HCl 100 MG TID PRN 07/28 2014 AC PO Promethazine HCl 12.5 MG Q6P PRN 07/28 2130 AC IV 08/04 2129 Sodium Chloride 1,000 ML BOLUS ONE 07/28 1415 DC 07/28 IV 07/28 1514 1408 Last 24 Hrs of Lab/Chris Results Last 24 Hrs of Labs/Mics: Laboratory Tests 07/29/17 0704: Sodium Pending, Potassium Pending, Chloride Pending, Carbon Dioxide Pending, Anion Gap Pending, BUN Pending, Creatinine Pending, BUN/Creatinine Ratio Pending , CBC w Diff Pending, WBC Pending, RBC Pending, Hgb Pending, Hct Pending, MCV Pending, MCH Pending, MCHC Pending, RDW Pending, Plt Count Pending, MPV Pending 07/28/17 1409: Anion Gap 12, Estimated GFR > 60, BUN/Creatinine Ratio 16.3, Glucose 85, Calcium 9.7, Total Bilirubin 0.7, AST 17, ALT 17, Alkaline Phosphatase 41, Troponin I < 0.01, Total Protein 7.1, Albumin 4.2, Globulin 2.9, Albumin/Globulin Ratio 1.4, PT 11.6, INR 1.06, APTT 27, CBC w Diff NO MAN DIFF REQ, RBC 4.26, MCV 87.9, MCH 29.2, MCHC 33.3, RDW 14.2, MPV 8.0, Gran % 71.9, Lymphocytes % 18.0 L, Monocytes % 8.0, Eosinophils % 1.7, Basophils % 0.4, Absolute Granulocytes 5.3, Absolute Lymphocytes 1.3, Absolute Monocytes 0.6, Absolute Eosinophils 0.1, Absolute Basophils 0, Urinalysis LIGHT H, Urine Color YEL, Urine Clarity HAZY H, Urine pH 7.5, Ur Specific [place] 1.015, Urine Protein NEG, Urine Ketones NEG , Urine Nitrite NEG, Urine Bilirubin NEG, Urine Urobilinogen 0.2, Ur Leukocyte Esterase SMALL H, Ur Microscopic SEDIMENT EXAMINED, Urine RBC 1-3, Urine WBC 15 -25 H, Ur Epithelial Cells FEW, Urine Bacteria MANY H, Urine Mucus FEW, Urine Hemoglobin NEG, Urine Glucose NEG Microbiology 07/28 1409 URINE ROUT: Urine Culture - RECD Assessment/Plan Assessment: Ms. Nieto is a 86 yo f with a PMH of colon cancer s/p resection, multinodular goiter, osteoporosis, hydrochondriasis, nephrolithiasis, fibromyalgias, hypothyroidism, HTN, depression, anxiety who presented to the ED with dizziness Problem list: Vertigo may be secondary to BPPV vs vestibular neuritis vs posterior circulation CVA Symtpomatic UTI Plan: IV ceftriaxone for UTI Await final cultures Continue home medications Check Orthostats MRI brain to r/o posterior CVA today PT evaluation today Meclizine TID and Compazine PRN for dizziness Consider other anti-emetics for dizziness if persistent dizziness Neuro recommendations appreciated Diet: Heart healthy DVT prophylaxis: sc Heparin Code: Full Problem List: 1. UTI (urinary tract infection) 2. Dizziness, nonspecific Pain Ratin Pain Location: NA Pain Goal: Remain pain free Pain Plan: NA Tomorrow's Labs & Rationales: none Katelyn Katz MD 07/29/17 1151: Attending Review Statement Attending Statement Attending MD Statement: examined this patient, discuss w/resident/PA/CEREAL MILLER, agreed w/resident/PA/CEREAL MILLER, reviewed EMR data (avail), discussed with nursing, discussed with case mgmt, amended to note Attending Assessment/Plan: Patient seen and examined. Lying in bed she appears lethargic.. She reports being well at rest but admits to dizziness with position change. She reports that it has improved compared to presentation but is still present. She denies any ringing in the ears or ear pain. Speech is intact. She has no nystagmus. She has no focal neurologic deficit. On presentation she did complain of dysuria. It is noted that she has had repeated UTIs in the past and apparently is on prophylactic antibiotic therapy with Bactrim. She is currently growing gram- negative rods in the urine. She was afebrile with no leukocytosis on presentation she was symptomatic. Neurology consultation appreciated. Problems: 1. Vertigo. 2. Cystitis. Plan: -Continue meclizine 3 times a day. -Patient is scheduled to undergo MRI today to rule out posterior circulation infarct not detected on CT scan. -Physical therapy consultation for Jordan's maneuver and mobilization. -Follow-up urine culture sensitivity. Transition to oral antibiotics based on results and complete 5 days of antibiotic therapy for cystitis. -I recommend the patient should follow-up with her primary care provider as an outpatient regarding the need for continued prophylactic antibiotic therapy as patient has developed a urinary tract infection on this.
[2017-07-29 08:18] LABS: ABSOLUTE BASOPHIL COUNT 0 /CUMM (0.0-0.2); ABSOLUTE EOSINOPHIL COUNT 0.1 /CUMM (0.0-0.7); ABSOLUTE GRANULOCYTE CT 4.1 /CUMM (1.4-6.5); ABSOLUTE LYMPH COUNT 1.2 /CUMM (1.2-3.4); ABSOLUTE MONOCYTE COUNT 0.4 /CUMM (0.10-0.60); BASOPHIL % 0.7 % (0.0-2.0); EOSINOPHIL % 1.9 % (0-5); GRANULOCYTE % 69.1 % (42.2-75.2); HEMATOCRIT 33.2 % (37-47); MEAN CORPUSCULAR HGB 29.6 PG (27.0-31.0); MEAN CORPUSCULAR HGB CONC 33.9 G/DL (33.0-37.0); MEAN CORPUSCULAR VOLUME 87.2 FL (81.0-99.0); MEAN PLATELET VOLUME 8.3 FL (7.4-10.4); PLATELET COUNT 185 /CUMM (130-400); RBC DISTRIBUTION WIDTH 14.2 % (11.5-14.5); RED BLOOD CELL CT 3.81 /CUMM (4.20-5.40); WHITE BLOOD CELL COUNT 5.9 /CUMM (4.8-10.8)
--- NOTE | 2017-07-29 11:07 | Cons- Neurology ---
General Information and HPI Consulting Request Date of Consult: 07/29/17 Requested By: Katelyn Katz MD Reason for Consult: Dizziness Source of Information: patient, old records Exam Limitations: no limitations History of Present Illness: 86 yo female noted spinning dizziness with movement since awakening to get OOB this AM. Symptoms worse with movement, currently asymptomatic while still but recurs rolling to left in bed. no associated neurologic symptoms such as blurring or diplopia, trouble speaking or lateralized numbness, weakness or clumsiness. Also no tinnitus, ear pain, fevers or chills. No prior hx of vertigo, no known CVAs Allergies/Medications Allergies: Coded Allergies: ciprofloxacin (From [facility]) (Mild, GI USPSET 07/02/15) Home Med List: Acetaminophen 500 MG TABLET 2 TAB PO TID PAIN (Reported) Alendronate Sodium (Fosamax) 70 MG TABLET 1 TAB PO QMON OSTEOPOROSIS ( Reported) in the morning, at least 30 minutes before the first food, beverage, or medication of the day Betamethasone Dipropionate 0.05 % CREAM..G. 1 PALOMA TOP DAILY BLE (Reported) apply to affected area(s) Budesonide/Formoterol Fumarate (Symbicort 80-4.5 Mcg Inhaler) 80 MCG-4.5 MCG/ ACTUATION HFA.AER.AD 2 PUF INH BID RESP. (Reported) Cholecalciferol (Vitamin D3) (Vitamin D) 2,000 UNIT CAPSULE 1 CAP PO DAILY SUPPLEMENT (Reported) Citalopram Hydrobromide (Citalopram HBr) 40 MG TABLET 1 TAB PO DAILY MENTAL HEALTH (Reported) Cyanocobalamin (Vitamin B-12) 1,000 MCG TABLET 1 TAB PO DAILY SUPPLEMENT ( Reported) Diazepam 2 MG TABLET 1 TAB PO BID UNKNOWN (Reported) Duloxetine HCl 30 MG CAPSULE.DR 1 CAP PO DAILY UNKNOWN (Reported) Gabapentin 300 MG CAPSULE 1 CAP PO TID UNKNOWN (Reported) Hyoscyamine Sulfate 0.125 MG TABLET 1 TAB PO DAILY [place] (Reported) Librax (Librax Capsule) 5 MG-2.5 MG CAPSULE 1 CAP PO TID PRN SPASMS (Reported ) Loratadine (Loradamed) 10 MG TABLET 1 TAB PO DAILY PRN ALLERGIES (Reported) Lorazepam 1 MG TABLET 1 TAB PO Q12H PRN ANXIETY (Reported) Losartan/Hydrochlorothiazide (Losartan-Hctz 100-25 MG Tab) 100 MG-25 MG TABLET 1 TAB PO DAILY BP (Reported) Mirabegron (Myrbetriq) 50 MG TAB.ER.24H 1 TAB PO DAILY BLADDER (Reported) Pantoprazole Sodium 40 MG TABLET.DR 1 TAB PO DAILY GI (Reported) Phenazopyridine HCl 100 MG TABLET 1 TAB PO TID PRN PAIN (Reported) Trimethoprim 100 MG TABLET 1 TAB PO DAILY ABX (Reported) Current Medications: Current Medications Sig/Cassie Start time Last Medication Dose Route Stop Time Status Admin Alendronate Sodium 70 MG QMON 07/29 0700 AC 07/29 PO 0630 Ceftriaxone Sodium 1,000 MG DAILY@1700 07/29 1700 AC IV Ceftriaxone Sodium 0 .STK-MED ONE 07/28 171 DC .ROUTE Ceftriaxone Sodium 1,000 MG ONCE ONE 07/28 1700 DC 07/28 IV 07/28 1701 1717 Cholecalciferol 1,000 IU DAILY 07/29 29 AC 07/29 PO 0945 Citalopram 40 MG DAILY 07/29 29 AC 07/29 Hydrobromide PO 0945 Cyanocobalamin 1,000 MCG DAILY 07/28 2000 AC 07/29 PO 0945 Duloxetine HCl 30 MG DAILY 07/29 0030 AC 07/29 PO 0952 Fluocinonide 1 PALOMA DAILY 07/29 1000 AC EXT Gabapentin 300 MG TID 07/29 003 AC 07/29 PO 0947 Lorazepam 1 MG Q12H PRN 07/28 2145 AC PO Lorazepam 0 .STK-MED ONE 07/28 1736 DC .ROUTE Lorazepam 0.5 MG ONCE ONE 07/28 1715 DC 07/28 IV 07/28 1716 1742 Meclizine HCl 25 MG TID 07/29 0030 AC 07/29 PO 0948 Meclizine HCl 0 .STK-MED ONE 07/28 1418 DC PO Meclizine HCl 25 MG ONCE ONE 07/28 1400 DC 07/28 PO 07/28 1401 1413 Melatonin 5 MG .STK-MED ONE 07/29 0121 DC PO 07/29 0122 Melatonin 5 MG ONCE ONE 07/28 2330 DC 07/29 PO 07/28 2331 0123 Metoclopramide HCl 0 .STK-MED ONE 07/28 1533 DC .ROUTE Metoclopramide HCl 10 MG ONCE ONE 07/28 1530 DC 07/28 IV 07/28 1531 1543 Mirabegron 50 MG DAILY 07/28 2014 AC 07/29 PO 0947 Omeprazole 40 MG DAILY AC 07/29 0700 AC 07/29 PO 0630 Ondansetron HCl 0 .STK-MED ONE 07/28 1418 DC PO Ondansetron HCl 4 MG ONCE ONE 07/28 1400 DC 07/28 PO 07/28 1401 1413 Patient Medication 1 ED ONE ONE 07/29 1030 DC Teaching ED 07/29 1031 Phenazopyridine HCl 100 MG TID PRN 07/28 2014 AC PO Promethazine HCl 12.5 MG Q6P PRN 07/28 213 AC IV 08/04 212 Sodium Chloride 1,000 ML BOLUS ONE 07/28 1415 DC 07/28 IV 07/28 1514 1408 Review of Systems Review of Systems: other than constipation, no complaints on the complete ROS Past History Travel History Traveled to [place] past 21 day No Medical History Blood Transfusion Hx: No Neurological: NONE EENT: NONE Cardiovascular: hypertension Respiratory: NONE Gastrointestinal: GERD Hepatic: KIDNEY STONES Renal: NONE Musculoskeletal: osteoporosis T12 FRACTURE Psychiatric: anxiety disorder major depression Endocrine: hyperthyroid Blood Disorders: NONE Cancer(s): colon/rectal cancer Surgical History Surgical History: non-contributory Psychosocial History Smoking Status: Never Smoked ETOH Use: denies use Illicit Drug Use: denies illicit drug use Functional Ability ADLs Independent: dressing, eating, toileting, bathing. Ambulation: cane IADLs Independent: shopping, housework, finances, food prep, telephone, transportation , medication admin. Exam & Diagnostic Data Vital Signs and I&O Vital Signs Date Time Temp Pulse Resp B/P B/P Pulse O2 O2 Flow FiO2 Mean Ox Delivery Rate 07/29 06 98.2 77 20 143/78 94 Room Air 07/28 2000 97.7 71 18 150/70 95 Room Air 07/28 1934 98.3 72 17 142/78 95 Room Air 07/28 1619 98.0 76 18 158/76 96 Room Air 07/28 1422 98 Room Air 07/28 1415 98.1 70 18 155/86 98 Room Air Intake & Output 07/29 1600 07/29 0800 07/29 0000 Intake Total 240 Output Total 600 600 Balance -360 -600 Intake, Oral 240 Output, Urine 600 600 Patient 175 lb Weight Physical Exam: Looks well in general , comfortable alert, oriented, no language errors, no dysarthria [id number] EOM full, gaze evoked nystagmus beating to left on leftward gaze CN 5-12 Normal motor power and tone normal all 4 extr sensation normal to primary modes coordination screens normal DTRs symmetric, no pathological signs gait not tested Last 48 Hours of Lab Results: Laboratory Tests 07/29 07/28 0704 1409 Chemistry Sodium (137 - 145 mmol/L) 141 142 Potassium (3.5 - 5.1 mmol/L) 3.6 3.6 Chloride (98 - 107 mmol/L) 103 101 Carbon Dioxide (22 - 30 mmol/L) 28 29 Anion Gap (5 - 16) 10 12 BUN (7 - 17 mg/dL) 11 13 Creatinine (0.5 - 1.0 mg/dL) 0.8 0.8 Estimated GFR (>60 ml/min) > 60 > 60 BUN/Creatinine Ratio (7 - 25 %) 13.8 16.3 Glucose (65 - 99 mg/dL) 85 Calcium (8.4 - 10.2 mg/dL) 9.7 Total Bilirubin (0.2 - 1.3 mg/dL) 0.7 AST (14 - 36 U/L) 17 ALT (9 - 52 U/L) 17 Alkaline Phosphatase (<127 U/L) 41 Troponin I (< 0.11 ng/ml) < 0.01 Total Protein (6.3 - 8.2 g/dL) 7.1 Albumin (3.5 - 5.0 g/dL) 4.2 Globulin (1.9 - 4.2 gm/dL) 2.9 Albumin/Globulin Ratio (1.1 - 2.2 %) 1.4 Coagulation PT (9.4 - 12.5 SEC) 11.6 INR (0.90 - 1.19) 1.06 APTT (25 - 37 SEC) 27 Hematology CBC w Diff NO MAN DIFF REQ NO MAN DIFF REQ WBC (4.8 - 10.8 /CUMM) 5.9 7.4 RBC (4.20 - 5.40 /CUMM) 3.81 L 4.26 Hgb (12.0 - 16.0 G/DL) 11.3 L 12.4 Hct (37 - 47 %) 33.2 L 37.4 MCV (81.0 - 99.0 FL) 87.2 87.9 MCH (27.0 - 31.0 PG) 29.6 29.2 MCHC (33.0 - 37.0 G/DL) 33.9 33.3 RDW (11.5 - 14.5 %) 14.2 14.2 Plt Count (130 - 400 /CUMM) 185 226 MPV (7.4 - 10.4 FL) 8.3 8.0 Gran % (42.2 - 75.2 %) 69.1 71.9 Lymphocytes % (20.5 - 51.1 %) 20.7 18.0 L Monocytes % (1.7 - 9.3 %) 7.6 8.0 Eosinophils % (0 - 5 %) 1.9 1.7 Basophils % (0.0 - 2.0 %) 0.7 0.4 Absolute Granulocytes (1.4 - 6.5 /CUMM) 4.1 5.3 Absolute Lymphocytes (1.2 - 3.4 /CUMM) 1.2 1.3 Absolute Monocytes (0.10 - 0.60 /CUMM) 0.4 0.6 Absolute Eosinophils (0.0 - 0.7 /CUMM) 0.1 0.1 Absolute Basophils (0.0 - 0.2 /CUMM) 0 0 Urines Urinalysis LIGHT H Urine Color (YEL,AMB,STR) YEL Urine Clarity (CLEAR) HAZY H Urine pH (5.0 - 8.0) 7.5 Ur Specific [place] (1.001 - 1.035) 1.015 Urine Protein (NEG,<30 MG/DL) NEG Urine Ketones (NEG) NEG Urine Nitrite (NEG) NEG Urine Bilirubin (NEG) NEG Urine Urobilinogen (0.1 - 1.0 EU/dl) 0.2 Ur Leukocyte Esterase (NEG) SMALL H Ur Microscopic SEDIMENT EXAMINED Urine RBC (0 - 5 /HPF) 1-3 Urine WBC (0 - 2 /HPF) 15-25 H Ur Epithelial Cells (NONE,FEW) FEW Urine Bacteria (NEG/NONE) MANY H Urine Mucus (FEW,NONE) FEW Urine Hemoglobin (NEG) NEG Urine Glucose (N MG/DL) NEG Imaging/Other Studies: CT Head: There is no evidence of acute intracranial hemorrhage or territorial infarction. No abnormal mass effect or midline shift is seen. Paige to white matter differentiation is well preserved. No extra-axial fluid collections are identified. The lateral ventricles are enlarged and so other cortical sulci suggestive mild central atrophy. There is diffuse periventricular hypodensity suggestive of chronic small vessel ischemic changes. The osseous structures and soft tissues are normal. The mastoid air cells and visualized portions of the paranasal sinuses are well aerated. IMPRESSION: No acute intracranial process seen. Assessment/Plan Assessment: Vertigo Most likely peripheral (labyrinthitis) No SOUS CHEF abnormalities on exam but in this age range CVA must be ruled out Recommendations: MRI brain If MRI reveals CVA, proceed with stoke w/u, dopplers, telemetry, Echo, ASA statin symptomatic treatment with meclizine please call me with MRI report when available, Consult Acknowledgment - Thank you for your consult request.
--- NOTE | 2017-07-29 12:48 | MRI REPORT ---
EXAMINATION: MR BRAIN WITHOUT AND WITH CONTRAST CLINICAL INFORMATION: History of colon cancer. Intractable vertigo, sudden onset. COMPARISON: Head CT from 07/28/2017 TECHNIQUE: MRI of the brain was obtained using routine sequences before and after the intravenous administration of 7 mL of Gadavist. FINDINGS: No acute intracranial abnormality. No abnormal parenchymal, leptomeningeal, or pachymeningeal enhancement is visualized after gadolinium administration. There is mild to moderate generalized prominence of the ventricles, sulci, and extra-axial CSF spaces as well as mild to moderate scattered T2 prolongation in the bihemispheric white matter compatible with chronic microangiopathy. No focal reduced diffusion is seen to suggest acute or subacute cerebral ischemia. No intracranial mass, intracerebral edema, intra-axial blood products, midline shift, or extra-axial collection is visualized. The craniocervical junction and supersellar region appear unremarkable. Marrow signal is preserved. No upper cervical adenopathy is visualized. Normal arterial and venous vascular flow voids are present. Minor mucosal thickening in the ethmoid air cells. The nasal cavity, nasopharynx, and mastoid air cells are clear. There have been bilateral ocular lens extractions. IMPRESSION: No acute intracranial abnormality. No abnormal intracranial enhancement. [id number] chronic microangiopathy and volume loss.
[2017-07-29 16:12] VITALS: BP 130/72
[2017-07-29 21:56] VITALS: BP 138/70
[2017-07-30 06:46] VITALS: BP 140/78
--- NOTE | 2017-07-30 07:15 | PN- Housestaff ---
See Addendum Subjective Follow-up For: Vertigo may be secondary to BPPV vs vestibular neuritis vs posterior circulation CVA Symtpomatic UTI - resolved Orthostatic hypotension Subjective: Patient OOB to chair. She reports minimal dizziness upon ambulation and none with sitting. She denies nausea, vomiting, urinary or bowel sympoms Review of Systems Constitutional: Reports: see HPI. Objective Last 24 Hrs of Vital Signs/I&O Vital Signs Date Time Temp Pulse Resp B/P B/P Pulse O2 O2 Flow FiO2 Mean Ox Delivery Rate 07/30 0646 98.0 89 20 140/78 93 Room Air 07/29 2156 99.1 97 18 138/70 93 Room Air 07/29 1612 98.0 84 20 130/72 94 Room Air 07/29 1600 Room Air Intake & Output 07/30 1600 07/30 0800 07/30 0000 Intake Total 400 Output Total 750 200 Balance -750 200 Intake, Oral 400 Output, Urine 750 200 Physical Exam General Appearance: Alert, Oriented X3, Cooperative, No Acute Distress Cardiovascular: Regular Rate, Normal S1, Normal S2 Lungs: Clear to Auscultation, Normal Air Movement Abdomen: Normal Bowel Sounds, Soft, No Tenderness Current Medications: Current Medications Sig/Cassie Start time Last Medication Dose Route Stop Time Status Admin Alendronate Sodium 70 MG QMON 07/29 0700 AC 07/29 PO 0630 Ceftriaxone Sodium 1,000 MG DAILY@1700 07/29 1700 AC 07/29 IV 1623 Cholecalciferol 1,000 IU DAILY 07/29 0030 AC 07/30 PO 1040 Citalopram 40 MG DAILY 07/29 0030 AC 07/30 Hydrobromide PO 1038 Cyanocobalamin 1,000 MCG DAILY 07/28 2000 AC 07/30 PO 1039 Duloxetine HCl 30 MG DAILY 07/29 0030 AC 07/30 PO 1039 Fluocinonide 1 PALOMA DAILY 07/29 1000 AC 07/30 EXT 1041 Gabapentin 300 MG TID 07/29 0030 AC 07/30 PO 1039 Lorazepam 1 MG Q12H PRN 07/28 2145 AC 07/29 PO 1325 Meclizine HCl 25 MG TIDPRN PRN 07/29 1430 AC 07/30 PO 0631 Meclizine HCl 25 MG TID 07/29 0030 DC 07/29 PO 0948 Mirabegron 50 MG DAILY 07/28 2014 AC 07/30 PO 1037 Omeprazole 40 MG DAILY AC 07/29 0700 AC 07/30 PO 0611 Phenazopyridine HCl 100 MG TID PRN 07/28 2014 07/29 PO 1317 Promethazine HCl 12.5 MG Q6P PRN 07/28 2129 AC IV 08/04 2128 Last 24 Hrs of Lab/Chris Results Last 24 Hrs of Labs/Mics: Laboratory Tests 07/30/17 0600: CBC w Diff Cancelled, WBC Cancelled, RBC Cancelled, Hgb Cancelled, Hct Cancelled , MCV Cancelled, MCH Cancelled, MCHC Cancelled, RDW Cancelled, Plt Count Cancelled, MPV Cancelled Assessment/Plan Assessment: Ms. Nieto is a 86 yo f with a PMH of colon cancer s/p resection, multinodular goiter, osteoporosis, hydrochondriasis, nephrolithiasis, fibromyalgias, hypothyroidism, HTN, depression, anxiety who presented to the ED with dizziness that has improved since admission and UTI that has now resolved Problem list: Vertigo may be secondary to BPPV vs vestibular neuritis vs posterior circulation CVA Symtpomatic UTI - resolved Orthostatic hypotension Plan: IV ceftriaxone for UTI Cultures grew GNR Continue home medications Orthostats postive on admission Dixhallpike manuever negative MRI brain showed chronic microvascular changes Meclizine TID and Compazine PRN for dizziness Consider other anti-emetics for dizziness if persistent dizziness Neuro recommendations appreciated Will discharge home today with home PT Diet: Heart healthy DVT prophylaxis: sc Heparin Code: Full Problem List: 1. Vertigo 2. UTI (urinary tract infection) 3. Dizziness, nonspecific 4. Orthostatic hypotension Pain Ratin Pain Location: NA Pain Goal: Remain pain free Pain Plan: NA Tomorrow's Labs & Rationales: none
[2017-07-30] MEDS ORDERED: MECLIZINE HCL25 MG PO (09:28)
--- NOTE | 2017-07-30 09:29 | Patient Discharge Instructions ---
Discharge Instructions General Discharge Information You were seen/treated for: Dizziness You had these procedures: none Diet Continue normal diet: Yes Activity Other activity limits: As tolerated Acute Coronary Syndrome Inclusion Criteria At DC or during hospital stay patient has or had the following: ACS DIAGNOSIS No Discharge Core Measures Meds if any: Prescribed or Continued at Discharge Meds if any: NOT Prescribed or Continued at Discharge Congestive Heart Failure Inclusion Criteria At DC or during hospital stay patient has or had the following: CHF DIAGNOSIS No Discharge Core Measures Meds if any: Prescribed or Continued at Discharge Meds if any: NOT Prescribed or Continued at Discharge Cerebrovascular accident Inclusion Criteria At DC or during hospital stay patient has or had the following: CVA/TIA Diagnosis No Discharge Core Measures Meds if any: Prescribed or Continued at Discharge Meds if any: NOT Prescribed or Continued at Discharge Venous thromboembolism Inclusion Criteria VTE Diagnosis No VTE Type NONE VTE Confirmed by (Test) NONE Discharge Core Measures - Per Current guidelines, there needs to be overlap - treatment for the first 5 days of Warfarin therapy. - If discharged on Warfarin prior to 5 days of - overlap therapy, the patient will need to be - assessed for post discharge needs including - *Post discharge parental anticoagulation - *Warfarin and/or parental anticoagulation education - *Follow up date to check INR post discharge At least 5 days overlap therapy as Inpatient Yes Meds if any: Prescribed or Continued at Discharge Note: Overlap Therapy is Warfarin and Anticoagulant Meds if any: NOT Prescribed or Continued at Discharge
== END 2017-07-30 14:40 ==
LOC: ERH 13:48 → ERHI 17:44 → 2NB 17:44 → ENRESERV 18:18 → ENTRNSPT 19:34 → EDTRNSPTSTS 19:42 → 2NB 19:56 → CMPTRNSPT 20:07 → 2NB 07-29 08:08 → ENPENDDIS 07-30 14:01 → ENTRNSPT 07-30 14:31 → EDTRNSPT 07-30 14:35 → EDTRNSPTSTS 07-30 14:35 → 2NB 07-30 14:40 → CMPTRNSPT 07-30 14:49
PROVIDERS: Internal Medicine; Physician Assistant Medical
DX: R42 Dizziness and giddiness (principal); I10 Essential (primary) hypertension; E05.90 Thyrotoxicosis, unspecified without thyrotoxic crisis or storm; M79.7 Fibromyalgia; F41.9 Anxiety disorder, unspecified; M81.6 Localized osteoporosis [Lequesne]; Z87.310 Personal history of (healed) osteoporosis fracture; F32.9 Major depressive disorder, single episode, unspecified; Z87.442 Personal history of urinary calculi; N30.00 Acute cystitis without hematuria
CPT/HCPCS: 70552; 36415; 70553; 71045; 74176; 81001; 82436; 87086; 93005; 93010; 96361; 96374; 96375; 96376; 97112-GP; 97116-GP; 97161-GP; A9579; G0378; G8978-GP; G8979-GP; G8980-GP; J0696; J2765; J3101

== ENCOUNTER 2017-08-01 11:26 | Inpatient (IN) | payer OTHER, MEDICARE ==
[~2017-08-01] VITALS: Ht 170.2 cm; Wt 78.9 kg
[~2017-08-01 11:26] MED LIST changes: +ACETAMINOPHEN500 M4 PO; +BETAMETHASONE D15 G4 TOP; +CITALOPRAM HBR40 MG PO; +DIAZEPAM2 M1 PO; +DULOXETINE HCL30 MG PO; +FOSAMAX70 M1 PO; +GABAPENTIN300 M2 PO; +HYOSCYAMINE0.125 M4 PO; +LIBRAX CAPSULE1 EACH PO; +LORADAMED10 MG PO; +LORAZEPAM1 M1 PO; +LOSARTAN-HCTZ1 EAC2 PO; +MECLIZINE HCL25 MG PO; +MYRBETRIQ50 M1 PO; +PANTOPRAZOLE SO40 M1 PO; +SYMBICORT 80-10.2 GM INH; +TRIMETHOPRIM100 M1 PO; +VITAMIN B-121000 MC3 PO; +VITAMIN D2000 UNIT PO
--- NOTE | 2017-08-01 11:44 | ED AMS/SEIZURE/WEAK/DIZZY ---
History of Present Illness General Chief Complaint: Syncope and Near-Syncope Stated Complaint: FEW EPISODES OF SYNCOPE Source: patient, old records, EMS Exam Limitations: no limitations Vital Signs & Intake/Output Vital Signs & Intake/Output Vital Signs Date Time Temp Pulse Resp B/P B/P Pulse O2 O2 Flow FiO2 Mean Ox Delivery Rate 08/01 1628 99.1 67 18 122/72 95 Room Air 08/01 1534 98.1 74 18 158/99 97 Room Air 08/01 1341 98.2 72 20 177/76 04 1221 Room Air 08/01 1135 96.8 68 12 156/100 96 Room Air Allergies Coded Allergies: ciprofloxacin (From CIPRO) (Mild, GI USPSET 07/02/15) Reconcile Medications Acetaminophen 500 MG TABLET 2 TAB PO TID PAIN (Reported) Alendronate Sodium (Fosamax) 70 MG TABLET 1 TAB PO QMON OSTEOPOROSIS ( Reported) in the morning, at least 30 minutes before the first food, beverage, or medication of the day Betamethasone Dipropionate 0.05 % CREAM..G. 1 PALOMA TOP DAILY BLE (Reported) apply to affected area(s) Budesonide/Formoterol Fumarate (Symbicort 80-4.5 Mcg Inhaler) 80 MCG-4.5 MCG/ ACTUATION HFA.AER.AD 2 PUF INH BID RESP. (Reported) Cholecalciferol (Vitamin D3) (Vitamin D) 2,000 UNIT CAPSULE 1 CAP PO DAILY SUPPLEMENT (Reported) Citalopram Hydrobromide (Citalopram HBr) 40 MG TABLET 1 TAB PO DAILY MENTAL HEALTH (Reported) Cyanocobalamin (Vitamin B-12) 1,000 MCG TABLET 1 TAB PO DAILY SUPPLEMENT ( Reported) Diazepam 2 MG TABLET 1 TAB PO BID UNKNOWN (Reported) Duloxetine HCl 30 MG CAPSULE.DR 1 CAP PO DAILY UNKNOWN (Reported) Gabapentin 300 MG CAPSULE 1 CAP PO TID UNKNOWN (Reported) Hyoscyamine Sulfate 0.125 MG TABLET 1 TAB PO DAILY UKNOWN (Reported) Librax (Librax Capsule) 5 MG-2.5 MG CAPSULE 1 CAP PO TID PRN SPASMS (Reported ) Loratadine (Loradamed) 10 MG TABLET 1 TAB PO DAILY PRN ALLERGIES (Reported) Lorazepam 1 MG TABLET 1 TAB PO Q12H PRN ANXIETY (Reported) Losartan/Hydrochlorothiazide (Losartan-Hctz 100-25 MG Tab) 100 MG-25 MG TABLET 1 TAB PO DAILY BP (Reported) Mirabegron (Myrbetriq) 50 MG TAB.ER.24H 1 TAB PO DAILY BLADDER (Reported) Pantoprazole Sodium 40 MG TABLET.DR 1 TAB PO DAILY GI (Reported) Phenazopyridine HCl 100 MG TABLET 1 TAB PO TID PRN PAIN (Reported) Triage Note: PT BIBA FROM [facility] FOR A FEW EPISODES OF NEAR SYNCOPE. PT WAS DISCHARGED FROM ED ON SATURDAY FOR SAME. PT STATES THEY COULD NOT FIGURE OUT WHY SHE WAS HAVING THESE EPISODES. PER EMS THEY SAT HER UP TO DO ORTHOSTATICS AND SHE ALMOST PASSED OUT. PT C/O RIGHT LOWER QUAD PAIN. PT IN A-FIB HR IN THE 60'S Triage Nurses Notes Reviewed? yes HPI: Patient was recently discharged from the hospital after admission for persistent vertigo. Patient was seen by neurology. Patient was discharged back to her assisted living. Patient was doing okay until this morning when again she developed dizziness and was unable to ambulate at all. Positive nausea vomiting. Patient denies any ringing in her ears. Past History Travel History Traveled to [place] past 21 day No Medical History Any Pertinent Medical History? see below for history Neurological: NONE EENT: NONE Cardiovascular: hypertension Respiratory: NONE Gastrointestinal: GERD Hepatic: KIDNEY STONES Renal: NONE Musculoskeletal: osteoporosis T12 FRACTURE Psychiatric: anxiety disorder major depression Endocrine: hyperthyroid Blood Disorders: NONE Cancer(s): colon/rectal cancer RETAIL SALES MANAGER/Reproductive: NONE History of MRSA: No History of VRE: No History of CDIFF: No Surgical History Surgical History: non-contributory Psychosocial History What is your primary language Divehi Tobacco Use: Never used ETOH Use: denies use Illicit Drug Use: denies illicit drug use Family History Hx Contributory? No Review of Systems Review of Systems Constitutional: Reports: no symptoms. EENTM: Reports: no symptoms. Respiratory: Reports: no symptoms. Cardiovascular: Reports: no symptoms. GI: Reports: no symptoms. Genitourinary: Reports: no symptoms. Musculoskeletal: Reports: no symptoms. Skin: Reports: no symptoms. Neurological/Psychological: Reports: see HPI. Hematologic/Endocrine: Reports: no symptoms. Immunologic/Allergic: Reports: no symptoms. All Other Systems: Reviewed and Negative Physical Exam Physical Exam General Appearance: well developed/nourished, alert, awake, anxious, moderate distress Head: atraumatic, normal appearance Eyes: Bilateral: PERRL, EOMI. Ears, Nose, Throat: normal pharynx, normal ENT inspection, hearing grossly normal Neck: normal inspection, supple, full range of motion Respiratory: normal breath sounds, chest non-tender, no respiratory distress, lungs clear Cardiovascular: regular rate/rhythm, normal peripheral pulses Gastrointestinal: normal bowel sounds, soft, non-tender, no organomegaly Back: normal inspection, normal range of motion Extremities: normal range of motion Neurologic/Psych: no motor/sensory deficits, awake, alert, oriented x 3, normal mood/affect Skin: intact, normal color, warm/dry Lymphatic: no anterior cervical booker Core Measures ACS in differential dx? No CVA/TIA Diagnosis No Sepsis Present: No Sepsis Focused Exam Completed? No Progress Differential Diagnosis: arrythmia, anemia, benign positional vertigo, CVA/stroke , drug intoxication, encephalitis, electrolyte imbalance, labrynthitis, Meniere' s disease, postural hypotension Plan of Care: Orders Procedure Date/time Status Heart Healthy Diet 08/01 D Active Intake & Output 08/01 1544 Active Pathway - chart 08/01 1456 Active House Staff 08/01 1456 Active Patient Data 08/01 1456 Active Code Status 08/01 1456 Active Patient Data 08/01 1432 Active ED Holding Orders 08/01 1426 Active Admit to inpatient 08/01 1426 Active Vital Signs 08/01 1426 Active Code Status 08/01 1426 Complete PT Evaluate & Treat 08/01 1239 Active THYROID STIMULATING HORMONE 08/01 1154 Active CORTISOL AM 08/01 1154 Active MISTAKE 08/01 1143 Active URINALYSIS 08/01 1143 Complete TROPONIN LEVEL 08/01 1143 Active LIPASE 08/01 1143 Active COMPREHENSIVE METABOLIC PANEL 08/01 1143 Active CBC WITHOUT DIFFERENTIAL 08/01 1143 Complete AMYLASE 08/01 1143 Active EKG 08/01 1143 Active PT Evaluate & Treat 08/01 UNK Active Lab Add-on Test 08/01 UNK Active VTE Mechanical Prophylaxis 08/01 UNK Active MISTAKE 08/01 UNK Active Nursing Misc 08/01 UNK Active Current Medications Sig/Cassie Start time Last Medication Dose Stop Time Status Admin Alendronate Sodium 70 MG QMON 08/05 0700 UNVr (Fosamax) Citalopram 40 MG DAILY 08/02 1000 UNVr Hydrobromide (Celexa) Duloxetine HCl 30 MG DAILY 08/02 1000 UNVr (Cymbalta) Losartan Potassium 100 MG DAILY 08/02 1000 UNVr (Cozaar) Omeprazole 40 MG DAILY AC 08/02 0700 UNVr (Prilosec) Budesonide/ 2 PUF BID 08/01 2200 UNVr Formoterol Fumarate (SYMBICORT) Diazepam 2 MG BID 08/01 220 UNVr (Valium) Gabapentin 300 MG TID 08/01 220 UNVr (Neurontin) Acetaminophen 650 MG Q6 08/01 1800 AC (Tylenol) Hyoscyamine 0.125 MG Q4 HRS NEEDED PRN 08/01 1630 UNVr (Levsin) Sodium Chloride 1,000 ML Q10H 08/01 1630 UNVr (Normal Saline 0.9%) 08/02 0229 Enoxaparin Sodium 40 MG DAILY 08/01 1436 AC (Lovenox) Laboratory Tests 08/01/17 1420: Urine Color YEL, Urine Clarity CLEAR, Urine pH 6.5, Ur Specific [place] 1.010, Urine Protein NEG, Urine Ketones NEG, Urine Nitrite NEG, Urine Bilirubin NEG, Urine Urobilinogen 0.2, Ur Leukocyte Esterase NEG, Ur Microscopic EXAM NOT REQUIRED, Urine Hemoglobin NEG, Urine Glucose NEG 08/01/17 1154: Anion Gap 9, Estimated GFR > 60, BUN/Creatinine Ratio 25.7 H, Glucose 92, Calcium 9.3, Total Bilirubin 0.7, AST 15, ALT 26, Alkaline Phosphatase 41, Troponin I < 0.01, Total Protein 6.4, Albumin 3.7, Globulin 2.7, Albumin/ Globulin Ratio 1.4, Amylase 31, Lipase 116, TSH Pending, Cortisol AM Sample Pending, CBC w Diff NO MAN DIFF REQ, RBC 4.12 L, MCV 87.2, MCH 28.8, MCHC 33.0, RDW 13.6, MPV 8.0, Gran % 74.9, Lymphocytes % 14.9 L, Monocytes % 7.7, Eosinophils % 1.8, Basophils % 0.7, Absolute Granulocytes 5.6, Absolute Lymphocytes 1.1 L, Absolute Monocytes 0.6, Absolute Eosinophils 0.1, Absolute Basophils 0 Diagnostic Imaging: Viewed by Me: Radiology Read. Discussed w/RAD: Radiology Read. Initial ED EKG: NSR, no ST T wave changes Prior EKG: unchanged Rhythm Strip: normal sinus rhythm Comments: POSITIVE ORTHOSTATIC CHANGES. UNABLE TO STAND SECONDARY TO SYMPTOMS. Patient is still unable to even stand at the bedside. Patient is unable to return to us for [facility] as that is assisted living. Patient will require admission to the hospital. Departure Departure Disposition: STILL A PATIENT Condition: Guarded Clinical Impression Primary Impression: Vertigo Referrals: Rhonda Edmond MD (PCP/Family) Departure Forms: Customer Survey General Discharge Information
[2017-08-01 12:03] LABS: ABSOLUTE BASOPHIL COUNT 0 /CUMM (0.0-0.2); ABSOLUTE EOSINOPHIL COUNT 0.1 /CUMM (0.0-0.7); ABSOLUTE GRANULOCYTE CT 5.6 /CUMM (1.4-6.5); ABSOLUTE LYMPH COUNT 1.1 /CUMM (1.2-3.4); ABSOLUTE MONOCYTE COUNT 0.6 /CUMM (0.10-0.60); BASOPHIL % 0.7 % (0.0-2.0); EOSINOPHIL % 1.8 % (0-5); GRANULOCYTE % 74.9 % (42.2-75.2); HEMATOCRIT 35.9 % (37-47); MEAN CORPUSCULAR HGB 28.8 PG (27.0-31.0); MEAN CORPUSCULAR VOLUME 87.2 FL (81.0-99.0); PLATELET COUNT 208 /CUMM (130-400); RBC DISTRIBUTION WIDTH 13.6 % (11.5-14.5); RED BLOOD CELL CT 4.12 /CUMM (4.20-5.40); WHITE BLOOD CELL COUNT 7.5 /CUMM (4.8-10.8)
--- NOTE | 2017-08-01 15:29 | History & Physical ---
Raymond Flores 08/01/17 1529: General Information and HPI History of Present Illness: Ms. Nieto is a 86 yo f with a PMH of colon cancer s/p resection, multinodular goiter, osteoporosis, hydrochondriasis, nephrolithiasis, fibromyalgias, hypothyroidism, HTN, depression, anxiety who presented to the ED with dizziness since this morning. Patient reports that she lives in an assisted living facility with her . She was in her usual state of health after being discharged from [facility] 2 days prior. Patient reports she was trying to get her his clothes and fell backwards in bed after a dizzy spell. She recalls taking her Meclizine approximately 30 mins before event. She denies nausea, vomiting, blurry vision, SOB, CP, urinary or bowel symptoms. Allergies/Medications Allergies: Coded Allergies: ciprofloxacin (From CIPRO) (Mild, GI USPSET 07/02/15) Home Med list Acetaminophen 500 MG TABLET 2 TAB PO TID PAIN (Reported) Alendronate Sodium (Fosamax) 70 MG TABLET 1 TAB PO QMON OSTEOPOROSIS ( Reported) in the morning, at least 30 minutes before the first food, beverage, or medication of the day Betamethasone Dipropionate 0.05 % CREAM..G. 1 PALOMA TOP DAILY BLE (Reported) apply to affected area(s) Budesonide/Formoterol Fumarate (Symbicort 80-4.5 Mcg Inhaler) 80 MCG-4.5 MCG/ ACTUATION HFA.AER.AD 2 PUF INH BID RESP. (Reported) Cholecalciferol (Vitamin D3) (Vitamin D) 2,000 UNIT CAPSULE 1 CAP PO DAILY SUPPLEMENT (Reported) Citalopram Hydrobromide (Citalopram HBr) 40 MG TABLET 1 TAB PO DAILY MENTAL HEALTH (Reported) Cyanocobalamin (Vitamin B-12) 1,000 MCG TABLET 1 TAB PO DAILY SUPPLEMENT ( Reported) Diazepam 2 MG TABLET 1 TAB PO BID UNKNOWN (Reported) Duloxetine HCl 30 MG CAPSULE.DR 1 CAP PO DAILY UNKNOWN (Reported) Gabapentin 300 MG CAPSULE 1 CAP PO TID UNKNOWN (Reported) Hyoscyamine Sulfate 0.125 MG TABLET 1 TAB PO DAILY UKNOWN (Reported) Librax (Librax Capsule) 5 MG-2.5 MG CAPSULE 1 CAP PO TID PRN SPASMS (Reported ) Loratadine (Loradamed) 10 MG TABLET 1 TAB PO DAILY PRN ALLERGIES (Reported) Lorazepam 1 MG TABLET 1 TAB PO Q12H PRN ANXIETY (Reported) Losartan/Hydrochlorothiazide (Losartan-Hctz 100-25 MG Tab) 100 MG-25 MG TABLET 1 TAB PO DAILY BP (Reported) Mirabegron (Myrbetriq) 50 MG TAB.ER.24H 1 TAB PO DAILY BLADDER (Reported) Pantoprazole Sodium 40 MG TABLET.DR 1 TAB PO DAILY GI (Reported) Phenazopyridine HCl 100 MG TABLET 1 TAB PO TID PRN PAIN (Reported) Past History Travel History Traveled to [place] past 21 day No Medical History Neurological: NONE EENT: NONE Cardiovascular: hypertension Respiratory: NONE Gastrointestinal: GERD Hepatic: KIDNEY STONES Renal: NONE Musculoskeletal: osteoporosis T12 FRACTURE Psychiatric: anxiety disorder major depression Endocrine: hyperthyroid Blood Disorders: NONE Cancer(s): colon/rectal cancer ASSOCIATE VETERINARIAN/Reproductive: NONE History of MRSA: No History of VRE: No History of CDIFF: No Surgical History Surgical History: non-contributory Past Family/Social History Psychosocial History ETOH Use: denies use Illicit Drug Use: denies illicit drug use Functional Ability ADLs Independent: dressing, eating, toileting, bathing. Ambulation: cane IADLs Independent: shopping, housework, finances, food prep, telephone, transportation , medication admin. Review of Systems Review of Systems Constitutional: Reports: see HPI. Exam & Diagnostic Data Last 24 Hrs of Vital Signs/I&O Vital Signs Date Time Temp Pulse Resp B/P B/P Pulse O2 O2 Flow FiO2 Mean Ox Delivery Rate 08/02 0655 98.3 18 94 08/02 0654 68 114/58 08/01 2146 98.2 57 18 118/60 96 Room Air / 1628 99.1 67 18 122/72 95 Room Air / 1534 98.1 74 18 158/99 97 Room Air 08/01 1341 98.2 72 20 177/76 08/01 1221 Room Air / 1135 96.8 68 12 156/100 96 Room Air Intake & Output 08/02 0800 / 0000 04 1600 Intake Total 539 522 9370 Output Total 450 400 Balance 471 175 4843 Intake, IV 610 271 6739 Intake, Oral 120 200 Output, Urine 450 400 Patient 175 lb 175 lb Weight Weight Bed scale Reported by Patient Measurement Method Physical Exam General Appearance Alert, Oriented X3, Cooperative, No Acute Distress HEENT Atraumatic, PERRLA, EOMI, Mucous Membr. moist/pink, No nystagmus Cardiovascular Regular Rate, Normal S1, Normal S2, No Murmurs Lungs Clear to Auscultation, Normal Air Movement Abdomen Normal Bowel Sounds, Soft, No Tenderness Neurological Normal Speech, Strength at 5/5 X4 Ext, Normal Tone, Sensation Intact, Dizziness upon sitting Extremities No Edema Last 24 Hrs of Labs/Chris: Laboratory Tests 08/01/17 1420: Urine Color YEL, Urine Clarity CLEAR, Urine pH 6.5, Ur Specific [place] 1.010, Urine Protein NEG, Urine Ketones NEG, Urine Nitrite NEG, Urine Bilirubin NEG, Urine Urobilinogen 0.2, Ur Leukocyte Esterase NEG, Ur Microscopic EXAM NOT REQUIRED, Urine Hemoglobin NEG, Urine Glucose NEG 08/01/17 1154: Anion Gap 9, Estimated GFR > 60, BUN/Creatinine Ratio 25.7 H, Glucose 92, Calcium 9.3, Total Bilirubin 0.7, AST 15, ALT 26, Alkaline Phosphatase 41, Troponin I < 0.01, Total Protein 6.4, Albumin 3.7, Globulin 2.7, Albumin/ Globulin Ratio 1.4, Amylase 31, Lipase 116, TSH 2.000, Cortisol AM Sample 13.0, CBC w Diff NO MAN DIFF REQ, RBC 4.12 L, MCV 87.2, MCH 28.8, MCHC 33.0, RDW 13.6 , MPV 8.0, Gran % 74.9, Lymphocytes % 14.9 L, Monocytes % 7.7, Eosinophils % 1.8, Basophils % 0.7, Absolute Granulocytes 5.6, Absolute Lymphocytes 1.1 L, Absolute Monocytes 0.6, Absolute Eosinophils 0.1, Absolute Basophils 0 Assessment/Plan Assessment: Ms. Nieto is a 86 yo f with a PMH of colon cancer s/p resection, multinodular goiter, osteoporosis, hydrochondriasis, nephrolithiasis, fibromyalgias, hypothyroidism, HTN, depression, anxiety who presented to the ED with dizziness with recent admission for same symptoms. MRI ruled out CVA. ED labs unremarkable but vitals positive for orthostatic hypotension Problem list: Dizziness most likely 2/2 Labrythitis and Orthostatic hypotension Plan: Admit to [facility] for further monitoring and evaluation NS IVF Consider a trial of steroids for labrynthitis if symptoms worsen Physical therapy evaluation for vestibular exercises Random cortisol TSH DVT prophylaxis: Heparin Diet: Regular Code: Full As Ranked By This Provider Problem List: 1. Orthostatic hypotension 2. Vertigo Core Measures/Misc (01/13) Acute Coronary Syndrome ACS Diagnosis: No Congestive Heart Failure Congestive Heart Failure Diagnosis No Cerebrovascular Accident CVA/TIA Diagnosis: No VTE (View Protocol) VTE Risk Factors Age>40 No Mechanical VTE Prophylaxis d/t N/A MechProphylax Ordered No VTE Pharm Prophylaxis d/t NA PharmProphylax ordered Sepsis (View protocol) Sepsis Present: No Jovi Stoll 08/01/17 1604: Resident Review Statement Resident Statement: examined this patient, discussed with management retail intern Other Findings: Ms. Nieto is a 86 yo f with a PMH of colon cancer s/p resection, multinodular goiter, osteoporosis, hydrochondriasis, nephrolithiasis, fibromyalgias, hypothyroidism, HTN, depression, anxiety who presented to the ED with dizziness since this morning. Patient was recently discharged 2 days ago after being treated in the hospital for the same symptoms and UTI. Patient reports up to going back to the facility, she continued to have dizziness which never improved. Today she was even unable to stand and fell down backwards on the bed due to bad dizziness. She has room spinning sensations which is exacerbated by standing and change of position and improved with lying down. She is unable to understand why she continues to have these symptoms despite being on meclizine. The EMS found her to be orthostatically positive and she almost passed out when she stood up. Denies any nausea, vomiting, chest pain, palpitations, urinary or bowel symptoms. No recent infection/upper respiratory infections. Her vitals in the ED was significant for a blood pressure of 156/100. Her labs showed high BUN but everything else was normal. Orthostatic positive in the ED, unable to stand secondary to symptoms. Physical exam General: Awake, alert, oriented, in moderate distress HEENT: Patient unable to open her eyes while standing. PERRLA no nystagmus Chest: Clear breath sounds CVS: S1-S2, no murmurs Extremities normal Assessment Recurrent vertigo: Likely labyrinthitis, MRI negative for stroke. Orthostatic hypotension Osteoporosis Hypertension History of depression Plan Admit to [facility] Hydration with IV half-normal saline at 100 cc per hour. Repeat orthostatic vitals up titration Physical therapy evaluation for vestibular exercises Random cortisol, TSH Steroids if no relief of symptoms DVT prophylaxis subcutaneous heparin Full code
--- NOTE | 2017-08-01 16:05 | Admission Certification ---
Admission Certification Certification Statement - As attending physician, I certify that at the time of - admission, based on clinical presentation, severity of - symptoms, need for further diagnostic testing and - therapeutic interventions, and risk of adverse outcomes - without in-hospital treatment, in my clinical assessment, - this patient requires an acute hospital stay for a minimum - of two nights or longer. I have also considered psychsocial - factors such as support system, advanced age, financial - issues, cognitive issues, and failed out-patient treatments, - past re-admission history, safety of patient, and lack of - compliance as applicable. Specific rationale supporting this admission is: Patient is being hospitalized for further management of her vertigo
--- NOTE | 2017-08-01 16:13 | PN- Att Addend ---
Attending Addendum Attending Brief Note Patient seen and examined. She was recently discharged after presenting at that time with complaints of dizziness. Brain imaging in the form of CT scan and MRI showed no evidence of infarction. She was seen by the neurology service and presumed to have labyrinthitis. She reports feeling better after vestibular exercises and therapy with meclizine. Patient reports doing well at home yesterday. She reports ambulating in her home with a physical therapist yesterday. She however reports that today she was unable to get out of bed despite assistance from several people. She was brought to the emergency room for evaluation. In the ER she was found to have orthostatic hypotension and referred to the inpatient medical service for further management. She is lethargic. She is oriented 3. On examination she has no focal deficit. She has no nystagmus. She did have significant drop in blood pressure when changing from supine to sitting position. Her BUN is elevated compared to prior admission suggesting some component of volume depletion. Problems: 1. Recurrent dizziness. Presumed to be secondary to labyrinthitis however she does appear volume depleted and has significant orthostatic blood pressure changes. 2. Hypertension 3. COPD Recommendations: -Admit to the inpatient General medical service. -Hydrate with half-normal saline at 100 cc an hour for 1 L. Repeat orthostatic vitals following hydration. -If her dizziness persists despite resolution of orthostatic hypotension recommend physical therapy evaluation for vestibular exercises. -May consider trial of steroid therapy for labyrinthitis if her symptoms persist after correction of her orthostatic hypotension. -Check random cortisol level. Repeat TSH. -DVT prophylaxis. -Continue her home regimen.
[2017-08-01 16:28] VITALS: BP 122/72
[2017-08-01 21:46] VITALS: BP 118/60
[2017-08-02 06:54] VITALS: BP 114/58
--- NOTE | 2017-08-02 07:38 | PN- Housestaff ---
Raymond Flores 08/02/17 0738: Subjective Follow-up For: Dizziness most likely 2/2 Labrythitis and Orthostatic hypotension Subjective: Patient reports dizziness upon ambulating to commode and sitting up. No acute events overnight. Review of Systems Constitutional: Reports: see HPI. Objective Last 24 Hrs of Vital Signs/I&O Vital Signs Date Time Temp Pulse Resp B/P B/P Pulse O2 O2 Flow FiO2 Mean Ox Delivery Rate 08/02 0655 98.3 18 94 08/02 0654 68 114/58 08/01 2146 98.2 57 18 118/60 96 Room Air / 1628 99.1 67 18 122/72 95 Room Air / 1534 98.1 74 18 158/99 97 Room Air 08/01 1341 98.2 72 20 177/76 08/01 1221 Room Air / 1135 96.8 68 12 156/100 96 Room Air Intake & Output 08/02 1600 08/02 0800 08/02 0000 Intake Total 720 600 Output Total 450 400 Balance 270 200 Intake, IV 600 400 Intake, Oral 120 200 Output, Urine 450 400 Patient 175 lb Weight Weight Bed scale Measurement Method Physical Exam General Appearance: Alert, Oriented X3, Cooperative, No Acute Distress Cardiovascular: Regular Rate, Normal S1, Normal S2 Lungs: Clear to Auscultation, Normal Air Movement Abdomen: Normal Bowel Sounds, Soft, No Tenderness Extremities: No Edema Current Medications: Current Medications Sig/Cassie Start time Last Medication Dose Route Stop Time Status Admin Acetaminophen 650 MG Q6P PRN 08/01 2146 AC PO Acetaminophen 650 MG Q6 08/01 1800 DC 08/01 PO 1847 Alendronate Sodium 70 MG QMON 08/05 0700 AC PO Budesonide/ 2 PUF BID 08/01 2199 DC Formoterol Fumarate INH Citalopram 40 MG DAILY 08/02 1000 AC Hydrobromide PO Diazepam 2 MG BID 08/01 2200 AC 08/01 PO 213 Diazepam 0 .STK-MED ONE 08/01 1159 DC PO Diazepam 5 MG ONCE ONE 08/01 1145 DC 08/01 PO 08/01 1146 1155 Duloxetine HCl 30 MG DAILY 08/02 1000 AC PO Enoxaparin Sodium 40 MG 2000 08/03 1999 AC SC Enoxaparin Sodium 40 MG DAILY 08/01 1436 DC 08/01 SC 2002 Gabapentin 300 MG TID 08/01 2200 AC 08/01 PO 2135 Hyoscyamine 0.125 MG Q4 HRS NEEDED PRN 08/01 1630 AC PO Losartan Potassium 100 MG DAILY 08/02 1000 AC PO Omeprazole 40 MG DAILY AC 08/02 0700 AC 08/02 PO 0657 Sodium Chloride 1,000 ML Q10H 08/01 1630 DC 08/01 IV 08/02 0229 1845 Sodium Chloride 1,000 ML BOLUS ONE 08/01 1215 DC 08/01 IV 08/01 1314 1223 Last 24 Hrs of Lab/Chris Results Last 24 Hrs of Labs/Mics: Laboratory Tests 08/01/17 1420: Urine Color YEL, Urine Clarity CLEAR, Urine pH 6.5, Ur Specific [place] 1.010, Urine Protein NEG, Urine Ketones NEG, Urine Nitrite NEG, Urine Bilirubin NEG, Urine Urobilinogen 0.2, Ur Leukocyte Esterase NEG, Ur Microscopic EXAM NOT REQUIRED, Urine Hemoglobin NEG, Urine Glucose NEG 08/01/17 1154: Anion Gap 9, Estimated GFR > 60, BUN/Creatinine Ratio 25.7 H, Glucose 92, Calcium 9.3, Total Bilirubin 0.7, AST 15, ALT 26, Alkaline Phosphatase 41, Troponin I < 0.01, Total Protein 6.4, Albumin 3.7, Globulin 2.7, Albumin/ Globulin Ratio 1.4, Amylase 31, Lipase 116, TSH 2.000, Cortisol AM Sample 13.0, CBC w Diff NO MAN DIFF REQ, RBC 4.12 L, MCV 87.2, MCH 28.8, MCHC 33.0, RDW 13.6 , MPV 8.0, Gran % 74.9, Lymphocytes % 14.9 L, Monocytes % 7.7, Eosinophils % 1.8, Basophils % 0.7, Absolute Granulocytes 5.6, Absolute Lymphocytes 1.1 L, Absolute Monocytes 0.6, Absolute Eosinophils 0.1, Absolute Basophils 0 Assessment/Plan Assessment: Ms. Nieto is a 86 yo f with a PMH of colon cancer s/p resection, multinodular goiter, osteoporosis, hydrochondriasis, nephrolithiasis, fibromyalgias, hypothyroidism, HTN, depression, anxiety who presented to the ED with dizziness with recent admission for same symptoms. MRI ruled out CVA. ED labs unremarkable but vitals positive for orthostatic hypotension Problem list: Dizziness most likely 2/2 Labyrinthitis and Orthostatic hypotension Plan: NS IVF given, orthostats currently negative Start Alendronate for Severe osteoporosis based on the lowest T-score value of - 2.6 Start steroid taper for labrynthitis (Pred 50 mg x 2, 40 mg x 2, 30 mg x 2, 20 mg x 2, 10 mg x 2) Physical therapy evaluation for vestibular exercises Random cortisol and TSH wnl DVT prophylaxis: Heparin Diet: Regular Code: Full Problem List: 1. Dizziness, nonspecific Pain Ratin Pain Location: NA Pain Goal: Remain pain free Pain Plan: NA Tomorrow's Labs & Rationales: none Gianna PEREZ,Katelyn 08/02/17 1505: Attending MD Review Statement Attending Statement Attending MD Statement: examined this patient, discuss w/resident/PA/W[employer] PRODUCTS INSPECTOR, agreed w/resident/PA/W[employer] PRODU[employer] INSPECTOR, reviewed EMR data (avail), discussed with nursing, discussed with case mgmt, amended to note Attending Assessment/Plan: Patient seen and examined. Lying in bed. Complains of lethargy. She complained of ongoing dizziness this morning which she states was worse with positional changes. Orthostatic vitals were negative. She was seen by the physical therapy service who stated that when they evaluated her she denied any dizziness. She denied any spinning sensation. They do report however that she continues to be very lethargic and not at her baseline. It is unclear the etiology of her symptoms. She does not have any obvious infectious process. Urinalysis this admission is within normal limits. There was concern of possible labyrinthitis during her prior hospitalizations. Since her symptoms are persistent despite correction of her orthostatic vitals will begin patient empirically on steroid therapy and monitor for clinical improvement over the weekend. We will continue physical therapy as tolerated.
[2017-08-02 14:43] VITALS: BP 142/88
[2017-08-02 22:01] VITALS: BP 153/81
[2017-08-03 06:58] VITALS: BP 172/91
[2017-08-03 08:55] VITALS: BP 158/78
--- NOTE | 2017-08-03 10:26 | PN- Housestaff ---
See Addendum Subjective Follow-up For: Dizziness most likely 2/2 Labrythitis and Orthostatic hypotension Subjective: Patient seen and examined. Resting in the bed. Continues to complain of dizziness. His bedside commode in the morning and was extremely distractible was assisted by 2 people to bed Review of Systems Constitutional: Reports: see HPI. Objective Last 24 Hrs of Vital Signs/I&O Vital Signs Date Time Temp Pulse Resp B/P B/P Pulse O2 O2 Flow FiO2 Mean Ox Delivery Rate 08/04 0755 158/78 08/03 0658 97.9 80 20 172/91 95 Room Air 08/03 0537 80 172/91 08/02 2201 98.3 89 20 153/81 94 Room Air 08/02 1443 97.6 97 16 142/88 95 Room Air 08/02 1432 Room Air Intake & Output 08/03 1600 08/03 0800 08/03 0000 Intake Total 480 Output Total 225 300 Balance -225 180 Intake, Oral 480 Output, Urine 225 300 Patient 174 lb Weight Physical Exam General Appearance: Alert, Oriented X3 Cardiovascular: Normal S1, Normal S2 Lungs: Normal Air Movement Abdomen: Normal Bowel Sounds, Soft Neurological: Normal Speech Current Medications: Current Medications Sig/Cassie Start time Last Medication Dose Route Stop Time Status Admin Acetaminophen 650 MG Q6P PRN 08/01 2146 AC PO Alendronate Sodium 70 MG QMON 08/05 699 AC PO Citalopram 40 MG DAILY 08/02 1000 AC 08/03 Hydrobromide PO 0848 Diazepam 2 MG BID 08/01 2199 AC 08/03 PO 0848 Duloxetine HCl 30 MG DAILY 08/02 999 AC 08/03 PO 0848 Enoxaparin Sodium 40 MG 2000 08/03 1999 AC 08/02 DC 2119 Gabapentin 300 MG TID 08/01 220 AC 08/03 PO 0848 Hyoscyamine 0.125 MG Q4 HRS NEEDED PRN 08/01 1630 AC PO Losartan Potassium 100 MG DAILY 08/02 1000 AC 08/03 PO 0537 Omeprazole 40 MG DAILY AC 08/02 0700 AC 08/03 PO 0537 Patient Medication 1 ED ONE ONE 08/02 1430 DC Teaching ED 08/02 1431 Polyethylene Glycol 17 GM DAILY 08/02 1000 AC 08/03 PO 0848 Prednisone 40 MG DAILY 08/04 1000 AC PO 08/05 1001 Prednisone 50 MG DAILY 08/02 1000 DC 08/03 PO 08/03 1001 0848 Senna/Docusate Sodium 2 TAB DAILY NEEDED PRN 08/02 0930 AC 08/03 PO 0848 Assessment/Plan Assessment: Ms. Nieto is a 86 yo f with a PMH of colon cancer s/p resection, multinodular goiter, osteoporosis, hydrochondriasis, nephrolithiasis, fibromyalgias, hypothyroidism, HTN, depression, anxiety who presented to the ED with dizziness with recent admission for same symptoms. MRI ruled out CVA. ED labs unremarkable but vitals positive for orthostatic hypotension Problem list: Dizziness most likely 2/2 Labyrinthitis and Orthostatic hypotension Plan: NS IVF given, orthostats currently negative -Alendronate for Severe osteoporosis based on the lowest T-score value of -2.6 -steroid taper for labrynthitis (Pred 50 mg x 2, 40 mg x 2, 30 mg x 2, 20 mg x 2 , 10 mg x 2) -Physical therapy evaluation for vestibular exercises -Random cortisol and TSH wnl DVT prophylaxis: Heparin Diet: Regular Code: Full Problem List: 1. Vertigo Pain Ratin Pain Location: n/a Pain Goal: Pain 4 or less Pain Plan: prn Tomorrow's Labs & Rationales: none
[2017-08-03 14:42] VITALS: BP 148/80
[2017-08-03 23:12] VITALS: BP 142/89
[2017-08-04 06:32] VITALS: BP 166/87
--- NOTE | 2017-08-04 08:33 | PN- Housestaff ---
See Addendum Subjective Follow-up For: Dizziness Subjective: Seen and examined. Continues to complain of dizziness continues to remain assist of one at least. No bed available for STR Review of Systems Constitutional: Reports: see HPI. Objective Last 24 Hrs of Vital Signs/I&O Vital Signs Date Time Temp Pulse Resp B/P B/P Pulse O2 O2 Flow FiO2 Mean Ox Delivery Rate 08/04 0816 84 164/82 08/04 0632 98.0 82 18 166/87 95 Room Air 08/03 2312 98.3 84 20 142/89 95 Room Air 08/03 1442 98.8 94 18 148/80 95 Room Air Intake & Output 08/04 1600 08/04 0800 08/04 0000 Intake Total Output Total 600 300 Balance -600 -300 Number 1 Bowel Movements Output, Urine 600 300 Physical Exam General Appearance: Alert, Oriented X3 Cardiovascular: Normal S1, Normal S2 Lungs: Clear to Auscultation Abdomen: Soft Current Medications: Current Medications Sig/Cassie Start time Last Medication Dose Route Stop Time Status Admin Acetaminophen 650 MG Q6P PRN 08/01 2146 AC PO Alendronate Sodium 70 MG QMON 08/05 0700 AC PO Citalopram 40 MG DAILY 08/02 1000 AC 08/04 Hydrobromide PO 0916 Diazepam 2 MG BID 08/01 2200 AC 08/04 PO 0919 Duloxetine HCl 30 MG DAILY 08/02 1000 AC 08/04 PO 0916 Enoxaparin Sodium 40 MG 2000 08/02 2000 AC 08/03 SC 205 Gabapentin 300 MG TID 08/01 2200 AC 08/04 PO 0917 Hyoscyamine 0.125 MG Q4 HRS NEEDED PRN 08/01 1630 AC 08/03 PO 2013 Losartan Potassium 100 MG DAILY 08/02 1000 AC 08/04 PO 0916 Omeprazole 40 MG DAILY AC 08/02 0700 AC 08/04 PO 0425 Polyethylene Glycol 17 GM DAILY 08/02 1000 AC 08/03 PO 0848 Prednisone 40 MG DAILY 08/04 1000 AC 08/04 PO 08/05 1001 0916 Senna/Docusate Sodium 2 TAB DAILY NEEDED PRN 08/02 0930 AC 08/03 PO 0848 Last 24 Hrs of Lab/Chris Results Last 24 Hrs of Labs/Mics: Laboratory Tests 08/04/17 0730: Anion Gap 11, Estimated GFR > 60, BUN/Creatinine Ratio 48.3 H Assessment/Plan Assessment: Ms. Nieto is a 86 yo f with a PMH of colon cancer s/p resection, multinodular goiter, osteoporosis, hydrochondriasis, nephrolithiasis, fibromyalgias, hypothyroidism, HTN, depression, anxiety who presented to the ED with dizziness with recent admission for same symptoms. MRI ruled out CVA. ED labs unremarkable but vitals positive for orthostatic hypotension Problem list: Dizziness most likely 2/2 Labyrinthitis and Orthostatic hypotension Plan: -orthostats currently negative -Alendronate for Severe osteoporosis based on the lowest T-score value of -2.6 -steroid taper for labrynthitis (Pred 50 mg x 2, 40 mg x 2, 30 mg x 2, 20 mg x 2 , 10 mg x 2) -Physical therapy evaluation for vestibular exercises -Random cortisol and TSH wnl -BUN elevated today, IVF DVT prophylaxis: Heparin Diet: Regular Code: Full Problem List: 1. Dizziness, nonspecific Pain Ratin Pain Location: na Pain Goal: Pain 4 or less Pain Plan: prn Tomorrow's Labs & Rationales: bep
--- NOTE | 2017-08-04 13:16 | Discharge Summary ---
Visit Information Visit Dates Admission Date: 08/01/17 Discharge Date: 08/05/17 Hospital Course Course Attending Physician: Katelyn Katz MD Primary Care Physician: Mayito PEREZ,Rhonda Hospital Course: Ms. Nieto is a 86 yo f with a PMH of colon cancer s/p resection, multinodular goiter, osteoporosis, hydrochondriasis, nephrolithiasis, fibromyalgias, hypothyroidism, HTN, depression, anxiety who presented to the ED with dizziness since this morning. Patient was discharged 2 days ago after being treated in the hospital for the same symptoms and UTI. Hospital course: Recurrent dizziness likely secondary to labyrinthitis and orthostatic hypotension: Patient was discharged just 2 days ago after being treated for similar complaints. She received IV fluids, meclizine and Jordan maneuver during the last hospital stay. An MRI done was negative for stroke. Neurology evaluated the patient and recommended to continue meclizine. She had no hearing loss, tinnitus, nystagmus. Diagnosis was labyrinthitis. However her symptoms did not improve and she came back with worsening dizziness. Found to be Orthostatic positive in the ED, unable to stand secondary to symptoms. She was hydrated with IV fluids and started on IV steroids for labyrinthitis. Physical therapy worked with the patient and her symptoms showed some improvement. Random cortisol and TSH were normal. Rest of her home medications were continued. Patient is being discharged to [facility] for more physical therapy and gait improvement. Her dizziness will likely resolve with time and settling of the inner ear inflammation. She is encouraged to increase her oral intake and avoid abrupt standing up from bed which could aggravate her symptoms and lead to falls. Follow-up with PCP in one week is recommended. Allergies: Coded Allergies: ciprofloxacin (From CIPRO) (Mild, GI USPSET 07/02/15) Disposition Summary Disposition Principal Diagnosis: Vertigo likely secondary to labyrinthitis. Orthostatic hypotension on admission; Likely due to volume depletion Additional Diagnosis: Vertigo Discharge Disposition: SNF Discharge Instructions General Discharge Information Code Status: Full Code Patient's Diet: Heart healthy diet Patient's Activity: As tolerated Follow-Up Instructions/Appts: Please follow-up with PCP within 1 week of discharge Please avoid standing up abruptly from lying down position to prevent falls. Please complete the course of steroids as directed. Medications at Discharge Discharge Medications: Continue taking these medications: Acetaminophen (Acetaminophen) 500 MG TABLET 2 Tablet ORAL THREE TIMES DAILY Comments: NOT GIVEN IN HOSPITAL Alendronate Sodium (Fosamax) 70 MG TABLET 1 Tablet ORAL EVERY SATURDAY Instructions: in the morning, at least 30 minutes before the first food, beverage, or medication of the day Comments: Last Taken: 08/05/17 Time: 6:30 AM Betamethasone Dipropionate (Betamethasone Dipropionate) 0.05 % CREAM..G. 1 Application On the skin DAILY Instructions: apply to affected area(s) Comments: NOT GIVEN IN HOSPITAL Budesonide/Formoterol Fumarate (Symbicort 80-4.5 Mcg Inhaler) 80 MCG-4.5 MCG/ ACTUATION HFA.AER.AD 2 Puff Inhale through mouth TWICE DAILY Comments: NOT GIVEN IN HOSPITAL Librax (Librax Capsule) 5 MG-2.5 MG CAPSULE 1 Capsule ORAL THREE TIMES DAILY as needed for SPASMS Comments: NOT GIVEN IN HOSPITAL Cholecalciferol (Vitamin D3) (Vitamin D) 2,000 UNIT CAPSULE 1 Capsule ORAL DAILY Comments: NOT GIVEN IN HOSPITAL Citalopram Hydrobromide (Citalopram HBr) 40 MG TABLET 1 Tablet ORAL DAILY Comments: Last Taken: 08/05/17 Time: 9:00 AM Cyanocobalamin (Vitamin B-12) 1,000 MCG TABLET 1 Tablet ORAL DAILY Comments: NOT GIVENIN HOSPITAL Diazepam (Diazepam) 2 MG TABLET 1 Tablet ORAL TWICE DAILY Qty = 60 Comments: Last Taken: 08/05/17 Time: 9:00 AM Duloxetine HCl (Duloxetine HCl) 30 MG CAPSULE.DR 1 Capsule ORAL DAILY Qty = 28 Comments: Last Taken: 08/05/17 Time: 9:00 AM Gabapentin (Gabapentin) 300 MG CAPSULE 1 Capsule ORAL THREE TIMES DAILY Qty = 84 Comments: Last Taken: 08/05/17 Time: 9:00 AM Losartan/Hydrochlorothiazide (Losartan-Hctz 100-25 MG Tab) 100 MG-25 MG TABLET 1 Tablet ORAL DAILY Qty = 28 Comments: Last Taken: 08/05/17 Time: 9:00 AM ([facility] ONLY) Hyoscyamine Sulfate (Hyoscyamine Sulfate) 0.125 MG TABLET 1 Tablet ORAL DAILY Comments: Last Taken: 08/03/17 Time: 8:00 PM Loratadine (Loradamed) 10 MG TABLET 1 Tablet ORAL DAILY as needed for ALLERGIES Comments: NOT GIVEN IN HOSPITAL Lorazepam (Lorazepam) 1 MG TABLET 1 Tablet ORAL Q12H as needed for ANXIETY Comments: Last Taken: 07/29/17 Time: 1:25 PM Mirabegron (Myrbetriq) 50 MG TAB.ER.24H 1 Tablet ORAL DAILY Qty = 28 Comments: NOT GIVEN IN HOSPITAL Pantoprazole Sodium (Pantoprazole Sodium) 40 MG TABLET.DR 1 Tablet ORAL DAILY Qty = 28 Comments: OMEPRAZOLE GIVEN IN HOSPITAL Last Taken: 08/05/17 Time: 6:00 AM Phenazopyridine HCl (Phenazopyridine HCl) 100 MG TABLET 1 Tablet ORAL THREE TIMES DAILY as needed for PAIN Qty = 6 Comments: NOT GIVEN IN HOSPITAL Start taking the following new medications: Prednisone (Prednisone) 10 MG TABLET 1 Tablet ORAL SEE INSTRUCTIONS Qty = 12 No Refills Instructions: TAKE 30 MG 08/06, 08/07. TAKE 20 MG 08/08, 08/09. TAKE 10 MG 08/10, 08/11. Comments: Last Taken: 08/05/17 Time: 9:00 AM Copies To: [place] PEREZ,Sterling Fuller; Mayito PEREZ,Rhonda Attending MD Review Statement Documenting Attending: Katelyn Katz MD Other Findings: Discharged in stable medical condition.
[2017-08-04 13:25] VITALS: BP 134/76
[2017-08-04 21:42] VITALS: BP 132/70
[2017-08-05 06:32] VITALS: BP 159/83
--- NOTE | 2017-08-05 07:16 | PN- Housestaff ---
See Addendum Subjective Follow-up For: Dizziness 2/2 ? orthostatic hypotension vs labrythitis Subjective: Patient reports persistent dizzines on ambulation Review of Systems Constitutional: Reports: see HPI. Objective Last 24 Hrs of Vital Signs/I&O Vital Signs Date Time Temp Pulse Resp B/P B/P Pulse O2 O2 Flow FiO2 Mean Ox Delivery Rate 08/05 934 97.9 66 20 148/86 08/05 0902 66 148/86 08/05 0632 97.9 66 20 159/83 96 Room Air 08/04 2142 98.6 70 20 132/70 96 Room Air 08/04 1325 97.5 78 18 134/76 95 Room Air Room Air Intake & Output 08/05 1600 08/05 0800 08/05 0000 Intake Total 275 Output Total 400 650 Balance -125 -650 Intake, IV 225 Intake, Oral 50 Output, Urine 400 650 Physical Exam General Appearance: Alert, Oriented X3, Cooperative, No Acute Distress Cardiovascular: Regular Rate, Normal S1, Normal S2 Lungs: Clear to Auscultation, Normal Air Movement Abdomen: Normal Bowel Sounds, Soft, No Tenderness Current Medications: Current Medications Sig/Cassie Start time Last Medication Dose Route Stop Time Status Admin Acetaminophen 650 MG Q6P PRN 08/01 2146 AC PO Alendronate Sodium 70 MG QMON 08/05 07 AC 08/05 PO 0601 Citalopram 40 MG DAILY 08/02 1000 AC 08/05 Hydrobromide PO 0902 Diazepam 2 MG BID 08/01 2200 AC 08/05 PO 0904 Duloxetine HCl 30 MG DAILY 08/02 1000 AC 08/05 PO 0902 Enoxaparin Sodium 40 MG 2000 08/02 2000 AC 08/04 SC 1939 Gabapentin 300 MG TID 08/01 2200 AC 08/05 PO 0902 Hyoscyamine 0.125 MG Q4 HRS NEEDED PRN 08/01 1630 AC 08/03 PO 2013 Losartan Potassium 100 MG DAILY 08/02 1000 AC 08/05 PO 0902 Omeprazole 40 MG DAILY AC 08/02 0700 AC 08/05 PO 0556 Polyethylene Glycol 17 GM DAILY 08/02 1000 AC 08/05 PO 0902 Prednisone 40 MG DAILY 08/04 1000 DC 08/05 PO 08/05 1001 0902 Senna/Docusate Sodium 2 TAB DAILY NEEDED PRN 08/02 0930 AC 08/03 PO 0848 Sodium Chloride 1,000 ML Q13H 08/04 1215 DC 08/04 IV 08/05 0114 1212 Last 24 Hrs of Lab/Chris Results Last 24 Hrs of Labs/Mics: Laboratory Tests 08/05/17 0826: Anion Gap 12, Estimated GFR > 60, BUN/Creatinine Ratio 33.3 H Assessment/Plan Assessment: Ms. Nieto is a 86 yo f with a PMH of colon cancer s/p resection, multinodular goiter, osteoporosis, hydrochondriasis, nephrolithiasis, fibromyalgias, hypothyroidism, HTN, depression, anxiety who presented to the ED with dizziness with recent admission for same symptoms. MRI ruled out CVA. ED labs unremarkable but vitals positive for orthostatic hypotension Problem list: Dizziness most likely 2/2 Labyrinthitis and Orthostatic hypotension Plan: NS IVF given, orthostats currently negative Continue Alendronate for Severe osteoporosis based on the lowest T-score value of -2.6 Continue steroid taper for labrynthitis (Pred 50 mg x 2, 40 mg x 2, 30 mg x 2, 20 mg x 2, 10 mg x 2). Patient will need to follow up with Neurology-[facility] upon discharge Physical therapy evaluation for vestibular exercises Random cortisol and TSH wnl DVT prophylaxis: Heparin Diet: Regular Code: Full Problem List: 1. Orthostatic hypotension 2. Dizziness, nonspecific 3. Vertigo Pain Ratin Pain Location: NA Pain Goal: Remain pain free Pain Plan: NA Tomorrow's Labs & Rationales: none
[2017-08-05] MEDS ORDERED: PREDNISONE10 M2 PO (08:37)
--- NOTE | 2017-08-05 08:39 | Patient Discharge Instructions ---
Discharge Instructions General Discharge Information You were seen/treated for: Orthostatic hypotension Labrythitis You had these procedures: none Special Instructions: Follow up with your PCP within 1 week of discharge Please follow up with neurologist for Dizziness as an outpatient. Diet Continue normal diet: Yes Activity Other activity limits: As tolerated Acute Coronary Syndrome Inclusion Criteria At DC or during hospital stay patient has or had the following: ACS DIAGNOSIS No Discharge Core Measures Meds if any: Prescribed or Continued at Discharge Meds if any: NOT Prescribed or Continued at Discharge Congestive Heart Failure Inclusion Criteria At DC or during hospital stay patient has or had the following: CHF DIAGNOSIS No Discharge Core Measures Meds if any: Prescribed or Continued at Discharge Meds if any: NOT Prescribed or Continued at Discharge Cerebrovascular accident Inclusion Criteria At DC or during hospital stay patient has or had the following: CVA/TIA Diagnosis No Discharge Core Measures Meds if any: Prescribed or Continued at Discharge Meds if any: NOT Prescribed or Continued at Discharge Venous thromboembolism Inclusion Criteria VTE Diagnosis No VTE Type NONE VTE Confirmed by (Test) NONE Discharge Core Measures - Per Current guidelines, there needs to be overlap - treatment for the first 5 days of Warfarin therapy. - If discharged on Warfarin prior to 5 days of - overlap therapy, the patient will need to be - assessed for post discharge needs including - *Post discharge parental anticoagulation - *Warfarin and/or parental anticoagulation education - *Follow up date to check INR post discharge At least 5 days overlap therapy as Inpatient No Meds if any: Prescribed or Continued at Discharge Note: Overlap Therapy is Warfarin and Anticoagulant Meds if any: NOT Prescribed or Continued at Discharge
[2017-08-05 09:35] VITALS: BP 148/86
== END 2017-08-05 12:45 | DRG 312 ==
LOC: ERH 11:26 → ERHI 14:32 → 2NB 14:32 → ENTRNSPT 15:35 → EDTRNSPTSTS 15:40 → EDTRNSPT 15:47 → 2NB 15:57 → CMPTRNSPT 16:10 → ENPENDDIS 08-05 10:43 → 2NB 08-05 12:45
PROVIDERS: Emergency Medicine
DX: I95.1 Orthostatic hypotension (principal); E86.9 Volume depletion, unspecified; J44.9 Chronic obstructive pulmonary disease, unspecified; E03.9 Hypothyroidism, unspecified; H83.09 Labyrinthitis, unspecified ear; I10 Essential (primary) hypertension; E04.2 Nontoxic multinodular goiter; M81.0 Age-related osteoporosis without current pathological fracture; M79.7 Fibromyalgia; K21.9 Gastro-esophageal reflux disease without esophagitis; F32.9 Major depressive disorder, single episode, unspecified; F41.9 Anxiety disorder, unspecified; Z85.038 Personal history of other malignant neoplasm of large intestine; Z87.310 Personal history of (healed) osteoporosis fracture; Z90.49 Acquired absence of other specified parts of digestive tract; Z88.1 Allergy status to other antibiotic agents
CPT/HCPCS: 2NBP; 36415; 36592; 81003; 82436; 93005; 93010; 97110-GO; 97161-GP; 97530-GO; J1650; J3360; J3490

== ENCOUNTER 2018-01-08 20:52 | Emergency (ER) | payer OTHER, MEDICARE ==
[~2018-01-08 20:52] MED LIST changes: +PREDNISONE10 M2 PO
--- NOTE | 2018-01-08 22:06 | ED GENERAL ADULT ---
See Addendum History of Present Illness General Chief Complaint: Abdominal Pain/Flank Pain Stated Complaint: BIBA FOR EVAL HEMATURIA Source: patient Exam Limitations: confusion (not the best historian) Vital Signs & Intake/Output Vital Signs & Intake/Output Vital Signs Date Time Temp Pulse Resp B/P B/P Pulse O2 O2 Flow FiO2 Mean Ox Delivery Rate 01/09 0147 98.2 84 16 154/80 99 Room Air 01/08 2344 98.3 100 20 158/86 94 Room Air 01/08 2132 Room Air 01/08 2102 98.1 91 16 152/64 95 Room Air ED Intake and Output 01/09 0000 01/08 1200 Intake Total Output Total 100 Balance -100 Output, Urine 100 Allergies Coded Allergies: ciprofloxacin (From CIPRO) (Mild, GI USPSET 07/02/15) Triage Note: PT BIBA FROM HOME WITH C/O LLQ PAIN AND HEMATURIA THAT STARTED THIS EVENING. PT STATES HER URINE "LOOKED LIKE CRANBERRY JUICE". DENIES PAINFUL URINATION, DENIES N/V Triage Nurses Notes Reviewed? yes HPI: 87-year-old female with past medical history significant for renal stones, history of colon cancer status post resection 7 years ago (did not require chemo /rad), vertigo, anxiety, status post back surgery for fall and fracture presenting to the emergency department today with concerns of hematuria. Patient states she has been experiencing abdominal pain on the left side for approximately 2 weeks. She describes this pain as sharp in nature intermittent. She does not take any pain medicine for this symptom has the symptoms are so brief. She states she has felt bloated for the last 2 weeks and having black stools. This afternoon she noticed her urine was pink. This concerned her and caused her to come to the emergency department. Patient is unable to give an accurate timeline for procedures, however she states she recently had a CT abdomen and pelvis done that was ordered by her vascular surgeon. This test was performed on 01/03/2018. She reports associated symptoms of black stool for approximately 2 weeks. She denies any urinary symptoms including dysuria, frequency, suprapubic pain. She also denies any chest pain, shortness of breath , fevers, chills. She denies taking any iron supplements and states that she occasionally takes Aleve for pain but has not used any recently. (Jordon PEREZ,Ness) Reconcile Medications Acetaminophen 500 MG TABLET 2 TAB PO TID PAIN (Reported) Alendronate Sodium (Fosamax) 70 MG TABLET 1 TAB PO QMON OSTEOPOROSIS ( Reported) in the morning, at least 30 minutes before the first food, beverage, or medication of the day Betamethasone Dipropionate 0.05 % CREAM..G. 1 PALOMA TOP DAILY BLE (Reported) apply to affected area(s) Budesonide/Formoterol Fumarate (Symbicort 80-4.5 Mcg Inhaler) 80 MCG-4.5 MCG/ ACTUATION HFA.AER.AD 2 PUF INH BID RESP. (Reported) Cephalexin (Keflex) 500 MG CAPSULE 1 CAP PO TID uti Cholecalciferol (Vitamin D3) (Vitamin D) 2,000 UNIT CAPSULE 1 CAP PO DAILY SUPPLEMENT (Reported) Citalopram Hydrobromide (Citalopram HBr) 40 MG TABLET 1 TAB PO DAILY MENTAL HEALTH (Reported) Cyanocobalamin (Vitamin B-12) 1,000 MCG TABLET 1 TAB PO DAILY SUPPLEMENT ( Reported) Diazepam 2 MG TABLET 1 TAB PO BID UNKNOWN (Reported) Duloxetine HCl 30 MG CAPSULE.DR 1 CAP PO DAILY UNKNOWN (Reported) Gabapentin 300 MG CAPSULE 1 CAP PO TID UNKNOWN (Reported) Hyoscyamine Sulfate 0.125 MG TABLET 1 TAB PO DAILY UKNOWN (Reported) Librax (Librax Capsule) 5 MG-2.5 MG CAPSULE 1 CAP PO TID PRN SPASMS (Reported ) Loratadine (Loradamed) 10 MG TABLET 1 TAB PO DAILY PRN ALLERGIES (Reported) Lorazepam 1 MG TABLET 1 TAB PO Q12H PRN ANXIETY (Reported) Losartan/Hydrochlorothiazide (Losartan-Hctz 100-25 MG Tab) 100 MG-25 MG TABLET 1 TAB PO DAILY BP (Reported) Mirabegron (Myrbetriq) 50 MG TAB.ER.24H 1 TAB PO DAILY BLADDER (Reported) Pantoprazole Sodium 40 MG TABLET.DR 1 TAB PO DAILY GI (Reported) Phenazopyridine HCl 100 MG TABLET 1 TAB PO TID PRN PAIN (Reported) Prednisone 10 MG TABLET 1 TAB PO SEE ADMIN CRITERIA LABRYTHITIS TAKE 30 MG 08/06, 08/07. TAKE 20 MG 08/08, 08/09. TAKE 10 MG 08/10, 08/11. (Elliott Rhodes MD) Past History Travel History Traveled to [place] past 21 day No Medical History Any Pertinent Medical History? see below for history Neurological: NONE EENT: NONE Cardiovascular: hypertension Respiratory: NONE Gastrointestinal: GERD Hepatic: KIDNEY STONES Renal: NONE Musculoskeletal: osteoporosis T12 FRACTURE Psychiatric: anxiety disorder major depression Endocrine: hyperthyroid Blood Disorders: NONE Cancer(s): colon/rectal cancer GROUND LAYER/Reproductive: NONE History of MRSA: No History of VRE: No History of CDIFF: No Influenza Vaccine: 01/27/17 Surgical History Surgical History: appendectomy, 10 inchees of colon removed for colon cancer Psychosocial History Where do you live Assisted Living Who do you live with Spouse What is your primary language Kinyarwanda Tobacco Use: Quit <30 days ago ETOH Use: occasional use (Ness Ruvalcaba MD) Family History Hx Contributory? No (Elliott Rhodes MD) Review of Systems Review of Systems Constitutional: Reports: no symptoms. EENTM: Reports: no symptoms. Respiratory: Reports: no symptoms. Cardiovascular: Reports: no symptoms. GI: Reports: abdominal pain, bloating, melena. Genitourinary: Reports: hematuria. Denies: dysuria, frequency, pain, urgency. Musculoskeletal: Reports: no symptoms. Skin: Reports: dryness. (Ness Ruvalcaba MD) Review of Systems Neurological/Psychological: Reports: no symptoms. Hematologic/Endocrine: Reports: no symptoms. Immunologic/Allergic: Reports: no symptoms. All Other Systems: Reviewed and Negative (Elliott Rhodes MD) Physical Exam Physical Exam General Appearance: well developed/nourished, no apparent distress, alert, awake , comfortable, alert and oriented x3 Head: atraumatic, normal appearance Eyes: Bilateral: normal appearance. 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 Skin: intact, normal color, warm/dry Lymphatic: no anterior cervical booker Core Measures ACS in differential dx? No CVA/TIA Diagnosis: No Sepsis Present: No Sepsis Focused Exam Completed? No (Elliott Rhodes MD) Progress Differential Diagnoses I considered the following diagnoses in my evaluation of the patient: [acute renal stone given hematuria and recent CT abd/pelv showing two stones on right side.] 22:13 Abdominal exam is benign; UA positive for WBC and RBC with negative nitrites. Will order CBC to assess for acute blood loss anemia and obtain CMP. Rectal exam performed; minimal stool in rectum-guiac negative. Plan of Care: Orders Procedure Date/time Status Regular Diet 01/09 B Active COMPREHENSIVE METABOLIC PANEL 01/09 2212 Complete CBC WITHOUT DIFFERENTIAL 01/09 2212 Complete CULTURE,URINE 01/08 2122 Active URINALYSIS 01/08 2122 Complete Laboratory Tests 01/08/180: Anion Gap 8, Estimated GFR > 60, BUN/Creatinine Ratio 15.7, Glucose 101 H, Calcium 9.3, Total Bilirubin 0.6, AST 18, ALT 22, Alkaline Phosphatase 46, Total Protein 6.5, Albumin 4.0, Globulin 2.5, Albumin/Globulin Ratio 1.6, CBC w Diff NO MAN DIFF REQ, RBC 4.24, MCV 84.4, MCH 28.2, MCHC 33.4, RDW 13.8, MPV 8.7, Gran % 70.5, Lymphocytes % 17.8 L, Monocytes % 9.0, Eosinophils % 2.1, Basophils % 0.6, Absolute Granulocytes 5.6, Absolute Lymphocytes 1.4, Absolute Monocytes 0.7 H, Absolute Eosinophils 0.2, Absolute Basophils 0 01/08/182119: Urine Color PINK H, Urine Clarity CLDY H, Urine pH 7.0, Ur Specific Gaylord 1.010, Urine Protein 100 H, Urine Ketones NEG, Urine Nitrite NEG, Urine Bilirubin NEG, Urine Urobilinogen 0.2, Ur Leukocyte Esterase TRACE H, Ur Microscopic SEDIMENT EXAMINED, Urine RBC >75 H, Urine WBC 25-50 H, Ur Epithelial Cells FEW, Urine Mucus FEW, Urine Hemoglobin LARGE H, Urine Glucose NEG Microbiology 01/09 2120 URINE ROUT: Urine Culture - RECD (Ness Ruvalcaba MD) Differential Diagnoses I considered the following diagnoses in my evaluation of the patient: Initial ED EKG: none (Elliott Rhodes MD) Departure Departure Condition: Stable Referrals: Rhonda Edmond MD (PCP/Family) Departure Forms: Customer Survey General Discharge Information (Ness Ruvalcaba MD) Departure Time of Disposition: 729 Disposition: HOME OR SELF CARE Clinical Impression Primary Impression: UTI (urinary tract infection) Prescriptions: Current Visit Scripts Cephalexin (Keflex) 1 CAP PO TID #21 CAP Resident Co-Sign Statement Statement: ED Attending supervision documentation- x I saw and evaluated the patient. I have also reviewed all the pertinent lab results and diagnostic results. I agree with the findings and the plan of care as documented in the Resident's documentation. [] I have reviewed the ED Record and agree with the Resident's documentation. [] Additions or exceptions (if any) to the Resident's note and plan are summarized below: [] (Elliott Rhodes MD) Critical Care Note Critical Care Note Critical Care Time: non-applicable (Elliott Rhodes MD)
[2018-01-08 22:55] LABS: ABSOLUTE BASOPHIL COUNT 0 /CUMM (0.0-0.2); ABSOLUTE EOSINOPHIL COUNT 0.2 /CUMM (0.0-0.7); ABSOLUTE GRANULOCYTE CT 5.6 /CUMM (1.4-6.5); ABSOLUTE LYMPH COUNT 1.4 /CUMM (1.2-3.4); ABSOLUTE MONOCYTE COUNT 0.7 /CUMM (0.10-0.60); BASOPHIL % 0.6 % (0.0-2.0); EOSINOPHIL % 2.1 % (0-5); GRANULOCYTE % 70.5 % (42.2-75.2); HEMATOCRIT 35.8 % (37-47); MEAN CORPUSCULAR HGB 28.2 PG (27.0-31.0); MEAN CORPUSCULAR HGB CONC 33.4 G/DL (33.0-37.0); MEAN CORPUSCULAR VOLUME 84.4 FL (81.0-99.0); MEAN PLATELET VOLUME 8.7 FL (7.4-10.4); PLATELET COUNT 209 /CUMM (130-400); RBC DISTRIBUTION WIDTH 13.8 % (11.5-14.5); RED BLOOD CELL CT 4.24 /CUMM (4.20-5.40); WHITE BLOOD CELL COUNT 7.9 /CUMM (4.8-10.8)
[2018-01-09] MEDS ORDERED: KEFLEX500 M1 PO (04:52)
[2018-01-09 09:30] VITALS: BP 142/82
== END 2018-01-09 12:17 ==
LOC: ERH 20:52
PROVIDERS: Internal Medicine
DX: N39.0 Urinary tract infection, site not specified (principal); F17.210 Nicotine dependence, cigarettes, uncomplicated; I10 Essential (primary) hypertension; F41.9 Anxiety disorder, unspecified; K21.9 Gastro-esophageal reflux disease without esophagitis; F32.9 Major depressive disorder, single episode, unspecified; E05.90 Thyrotoxicosis, unspecified without thyrotoxic crisis or storm
CPT/HCPCS: 81001; 87086; 96374; 96375; J0131; J0696; J2405